=== PATIENT | female | born 1960 | race Caucasian/White ===

== ENCOUNTER 2017-01-15 06:07 | Emergency (ER) | payer MEDICAID ==
[2017-01-15] MEDS ORDERED: Sodium Chloride 0.9% 1,000 ML IV ONE (06:18)
[2017-01-15 06:20] VITALS: BP 149/89
[2017-01-15 07:18] LABS: CHLORIDE,CL 104 mmol/L (101-111); SODIUM,NA 135 mmol/L (135-145)
--- NOTE | 2017-01-15 07:26 | EDM.PDOC ---
{null, ED HPI GENERAL MEDICAL PROBLEM - General Source of Information: Reports: Patient History Limitations: Reports: No Limitations - History of Present Illness Quality: Reports: Ache Severity: Mild Associated Symptoms: Reports: Headaches Headache Pain Score (Numeric/FACES): 6 <Sunitha Vale - Last Filed: 01/15/17 07:21> <SánchezJustin Raphael - Last Filed: 01/15/17 08:01> - General Chief Complaint: Neuro Symptoms/Deficits Stated Complaint: IN BY AMBULANCE Time Seen by Provider: 01/15/17 06:15 - History of Present Illness INITIAL COMMENTS - FREE TEXT/NARRATIVE: ED via [facility] with hx "seizure". Patient reported getting morning routine bent over feeding cat and woke up on the floor shaking. Notes being tired recently with job for past month. Hx one seizure prior approximately one year ago. On no medications for seizure disorder. pain to back of her head. (Sunitha Vale) - Related Data Allergies Allergy/AdvReac Type Severity Reaction Status Date / Time diphenhydramine Allergy Rash Verified 01/15/17 06:20 [From Benadryl] loperamide HCl Allergy Rash Verified 01/15/17 06:20 [From Imodium A-D] Home Meds: Home Meds Metoprolol Succinate [Toprol XL] 100 mg PO DAILY 01/26/15 [History] Multivitamin [One Daily Multivitamin] 1 tab PO DAILY 01/26/15 [History] amLODIPine [Norvasc] 5 mg PO DAILY 01/26/15 [History] traZODone 100 mg PO BEDTIME PRN 01/26/15 [History] Past Medical History Cardiovascular History: Reports: Hypertension Respiratory History: Reports: None Gastrointestinal History: Reports: Cholelithiasis, Gastritis, GERD, Pancreatitis Other Gastrointestinal History: pancreatis split open and rerouted to stomach Genitourinary History: Reports: None 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, Musculoskeletal History: Reports: None, Osteoarthritis Neurological History: Reports: None, Concussion, Seizure Psychiatric History: Reports: Addiction, Anxiety, Depression, Panic Attack Endocrine/Metabolic History: Reports: Diabetes, Type I Hematologic History: Reports: None Immunologic History: Reports: None Oncologic (Cancer) History: Reports: None, Cervix Dermatologic History: Reports: None - Infectious Disease History Infectious Disease History: Reports: Chicken Pox, Measles, Mumps - Past Surgical History Head Surgeries/Procedures: Reports: None HEENT Surgical History: Reports: Tonsillectomy GI Surgical History: Reports: Cholecystectomy, Other (See Below) Other GI Surgeries/Procedures: Has esphogeal edema. Female Surgical History: Reports: Hysterectomy <Sunitha Vale - Last Filed: 01/15/17 07:21> Social & Family History - Family History Family Medical History: Noncontributory - Tobacco Use Smoking Status *Q: Current Every Day Smoker Years of Tobacco use: 44 Packs/Tins Daily: 1 Used Tobacco, but Quit: No Second Hand Smoke Exposure: No - Caffeine Use Caffeine Use: Reports: Coffee - Alcohol Use Days Per Week of Alcohol Use: 3 Number of Drinks Per Day: 2 Total Drinks Per Week: 6 - Recreational Drug Use Recreational Drug Use: Yes Drug Use in Last 12 Months: Yes Recreational Drug Type: Reports: Marijuana/Hashish Other Recreational Drug Type: smoked some weed Thursday Recreational Drug Use Frequency: Weekly - Living Situation & Occupation Living situation: Reports: with Family Occupation: Unemployed <Sunitha Vale - Last Filed: 01/15/17 07:21> ED ROS GENERAL - Review of Systems Review Of Systems: See Below Constitutional: Reports: Malaise, Weakness HEENT: Reports: No Symptoms Respiratory: Reports: No Symptoms Cardiovascular: Reports: No Symptoms GI/Abdominal: Reports: No Symptoms Musculoskeletal: Reports: No Symptoms Skin: Reports: No Symptoms Neurological: Reports: Headache, Seizure (self report) <Sunitha Vale - Last Filed: 01/15/17 07:21> - Physical Exam Exam: See Below Exam Limited By: No Limitations General Appearance: Alert, Anxious, Mild Distress Eye Exam: Bilateral Eye: EOMI, PERRL Ears: Normal External Exam, Normal TMs Nose: Normal Inspection, Normal Mucosa Throat/Mouth: Normal Inspection, Normal Lips Head Exam: Atraumatic, Normocephalic Neck: Normal Inspection, Supple, Non-Tender Respiratory/Chest: No Respiratory Distress, Lungs Clear Cardiovascular: Normal Peripheral Pulses, Regular Rate, Rhythm GI/Abdominal: Normal Bowel Sounds, Soft Neuro Exam (Abbreviated): Alert, Oriented, Normal Cognition, Normal Reflexes, No Motor/Sensory Deficits Back Exam: Normal Inspection, Full Range of Motion Extremities: Normal Inspection, Normal Range of Motion, Non-Tender Psychiatric: Other (dramatic) Skin Exam: Warm, Dry, Intact, Normal Color <Sunitha Vale - Last Filed: 01/15/17 07:21> Departure <Sunitha Vale - Last Filed: 01/15/17 07:21> - Departure Time of Disposition: 07:59 Condition: fair <SánchezJustin - Last Filed: 01/15/17 08:01> - Departure Disposition: Home, Self-Care 01 Clinical Impression: ETOH abuse Syncope Qualifiers: Syncope type: vasovagal syncope Qualified Code(s): R55 - Syncope and collapse - Discharge Information Forms: ED Department Discharge Care Plan Goals: The patient was advised of the examination, lab, EKG and CT results during the visit. The patient was encouraged to avoid alcohol use. The patient was given Tylenol for her headache. If the patient has any additional symptoms or concerns , the patient should follow-up with her primary care facility or return to the emergency department. }
[2017-01-15] MEDS ORDERED: Acetaminophen 325 MG Tab PO ONE (07:32)
--- NOTE | 2017-01-17 12:17 | EKG ---
{null, 01/15/2017 - FRITZ POSADAS - A 12-lead EKG shows normal sinus rhythm with right bundle-branch block signs. Nonspecific ST-T wave changes noted mainly in V4 and V5. No significant ST elevation or ST depression noted on this 12-lead EKG. [facility] /[id number] }
== END 2017-01-15 08:23 | disposition home or self-care (01) ==
LOC: DL.ED 06:07
DX: R55 Syncope and collapse (principal); F10.10 Alcohol abuse, uncomplicated; I10 Essential (primary) hypertension; K21.9 Gastro-esophageal reflux disease without esophagitis; M19.90 Unspecified osteoarthritis, unspecified site; F41.9 Anxiety disorder, unspecified; F32.9 Major depressive disorder, single episode, unspecified; E10.9 Type 1 diabetes mellitus without complications; F17.210 Nicotine dependence, cigarettes, uncomplicated; Z98.890 Other specified postprocedural states; Z90.710 Acquired absence of both cervix and uterus; Z90.49 Acquired absence of other specified parts of digestive tract; Z88.8 Allergy status to other drugs, medicaments and biological substances; Z79.899 Other long term (current) drug therapy
CPT/HCPCS: 36415; 70450; 80053; 80305; 81001; 82150; 82553; 83690; 83735; 84484; 85025; 85610; 93005; 96360; 99285; A9270; G0480; J7030

== ENCOUNTER 2019-02-07 14:19 | Observation (INO) | payer MEDICAID ==
--- NOTE | 2019-02-07 14:31 | EDM.PDOC ---
ED HPI GENERAL MEDICAL PROBLEM - General Chief Complaint: General Stated Complaint: GIRMA NARANJO [id number] Time Seen by Provider: 02/07/19 14:30 Source of Information: Reports: Patient, Old Records, RN, RN Notes Reviewed History Limitations: Reports: No Limitations - History of Present Illness INITIAL COMMENTS - FREE TEXT/NARRATIVE: Pt presents to ER from home by POV with c/o 2 days of rapid heart rate, anxiety , nausea, vomiting, abdominal pain, and tremor. Pt admits to binge drinking alcohol x3 weeks and last drank 3 or 4 days ago. Pt has Hx of pancreatitis, and alcohol withdrawals. Pt reports extreme stress and anxiety due to financial problems. Onset: Gradual Duration: Constant Location: Reports: Abdomen, Generalized Quality: Reports: Ache Severity: Moderate Improves with: Reports: None Worsens with: Reports: None Associated Symptoms: Reports: No Other Symptoms - Related Data Allergies Allergy/AdvReac Type Severity Reaction Status Date / Time diphenhydramine Allergy Rash Verified 01/15/17 06:20 [From Benadryl] loperamide HCl Allergy Rash Verified 01/15/17 06:20 [From Imodium A-D] Home Meds: Home Meds Metoprolol Succinate [Toprol XL] 100 mg PO DAILY 01/26/15 [History] Multivitamin [One Daily Multivitamin] 1 tab PO DAILY 01/26/15 [History] amLODIPine [Norvasc] 5 mg PO DAILY 01/26/15 [History] traZODone 100 mg PO BEDTIME PRN 01/26/15 [History] Past Medical History Cardiovascular History: Reports: Hypertension Respiratory History: Reports: None Gastrointestinal History: Reports: Cholelithiasis, Gastritis, GERD, Pancreatitis Other Gastrointestinal History: pancreatis split open and rerouted to stomach Genitourinary History: Reports: None 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, Musculoskeletal History: Reports: None, Osteoarthritis Neurological History: Reports: None, Concussion, Seizure Psychiatric History: Reports: Addiction, Anxiety, Depression, Panic Attack Endocrine/Metabolic History: Reports: Diabetes, Type I Hematologic History: Reports: None Immunologic History: Reports: None Oncologic (Cancer) History: Reports: None, Cervix Dermatologic History: Reports: None - Infectious Disease History Infectious Disease History: Reports: Chicken Pox, Measles, Mumps - Past Surgical History Head Surgeries/Procedures: Reports: None HEENT Surgical History: Reports: Tonsillectomy GI Surgical History: Reports: Cholecystectomy, Other (See Below) Other GI Surgeries/Procedures: Has esphogeal edema. Female Surgical History: Reports: Hysterectomy Social & Family History - Family History Family Medical History: Noncontributory - Caffeine Use Caffeine Use: Reports: Coffee - Alcohol Use Alcohol Use History: Yes Alcohol Use Frequency: Binges - Living Situation & Occupation Living situation: Reports: with Family Occupation: Unemployed ED ROS GENERAL - Review of Systems Review Of Systems: ROS reveals no pertinent complaints other than HPI. ED EXAM, GENERAL - Physical Exam Exam: See Below Exam Limited By: No Limitations General Appearance: Alert, Anxious, Thin, Other (Chronically ill appearing) Eye Exam: Bilateral Eye: EOMI, Nystagmus (Lateral gaze), PERRL Ears: Normal External Exam, Hearing Grossly Normal Nose: Normal Inspection, Normal Mucosa, No Blood Throat/Mouth: Normal Lips, Normal Teeth, Normal Gums, Normal Oropharynx, Normal Voice, No Airway Compromise, Other (Dry oral membranes) Head: Atraumatic, Normocephalic Neck: Normal Inspection, Supple, Non-Tender, Full Range of Motion Respiratory/Chest: No Respiratory Distress, Lungs Clear, Normal Breath Sounds, No Accessory Muscle Use, Chest Non-Tender Cardiovascular: Regular Rate, Rhythm, No Edema, Tachycardia GI/Abdominal: Normal Bowel Sounds, Soft, No Distention, No Abnormal Bruit, Tender (Generalized upper abdominal tenderness). No: Guarding, Rigid, Rebound (Female) Exam: Deferred Rectal (Female) Exam: Deferred Back Exam: Normal Inspection. No: CVA Tenderness (L), CVA Tenderness (R) Extremities: Normal Inspection, Normal Range of Motion, Non-Tender, Normal Capillary Refill, No Pedal Edema Neurological: Alert, Oriented, Normal Cognition, No Motor/Sensory Deficits, Other (Fine tremor of B/L hands) Psychiatric: Anxious, Depressed Mood, Flat Affect, Tearful Skin Exam: Warm, Dry, Intact, Normal Color, No Rash EKG INTERPRETATION EKG Date: 02/07/19 Time: 14:53 Rhythm: Other (Sinus Tach.) Rate (Beats/Min): 116 [place]: Normal P-Wave: Present (Biatrial abnormalities) QRS: RBBB ST-T: Normal QT: Normal Comparison: NA - No Prior EKG EKG Interpretation Comments: No acute ischemic changes. Course - Vital Signs Last Recorded V/S: Last Vital Signs Temp 98.2 F 02/07/19 14:27 Pulse 128 H 02/07/19 14:27 Resp 14 02/07/19 14:27 BP 135/98 H 02/07/19 14:27 Pulse Ox 98 02/07/19 14:27 - Orders/Labs/Meds Orders: Active Orders 24 hr Category Date Time Status EKG 12 Lead [EKG Documentation Completion] [RC] STAT Care 02/07/19 14:38 Active Peripheral IV Care [RC] . DIRECTED Care 02/07/19 14:39 Active CULTURE URINE [RM] Stat Lab 02/07/19 16:54 Received Sodium Chloride 0.9% [Saline Flush] Med 02/07/19 14:39 Active 10 ml FLUSH ASDIRECTED PRN Peripheral IV Insertion Adult [OM.PC] Stat Oth 02/07/19 14:38 Ordered Medication Orders Sodium Chloride (Saline Flush) 10 ml FLUSH ASDIRECTED PRN PRN Reason: Keep Vein Open Last Admin: 02/07/19 15:00 Dose: 10 ml Labs: Laboratory Tests 02/07/19 02/07/19 02/07/19 Range/Units 14:47 14:47 14:47 WBC 11.3 H (5.0-10.0) 10^3/uL RBC 4.90 (4.2-5.4) 10^6/uL Hgb 16.2 H (12.0-16.0) g/dL Hct 47.1 H (37.0-47.0) % MCV 96.1 (80-100) fL MCH 33.1 (27.0-34.0) pg MCHC 34.4 (33.0-35.0) g/dL Plt Count 155 (150-450) 10^3/uL Neut % (Auto) 84.1 H (42.2-75.2) % Lymph % (Auto) 9.1 L (20.5-50.1) % [place] % (Auto) 6.7 (2-8) % Eos % (Auto) 0.0 L (1.0-3.0) % Baso % (Auto) 0.1 (0.0-1.0) % PT 10.0 (9.0-12.0) SEC INR 1.0 (0.9-1.2) APTT 22.8 (22.0-34.0) SEC Sodium 129 L (135-145) mmol/L Potassium 3.4 L (3.6-5.0) mmol/L Chloride 85 L D (101-111) mmol/L Carbon Dioxide 23.0 (21.0-31.0) mmol/L Anion Gap 24.4 BUN 35 H (7-18) mg/dL Creatinine 1.4 H (0.6-1.3) mg/dL Est Cr Clr Drug Dosing 33.75 mL/min Estimated GFR (MDRD) 39 BUN/Creatinine Ratio 25.00 Glucose 206 H (74-105) mg/dL Calcium 11.5 H D (8.4-10.2) mg/dl Magnesium 1.5 L (1.8-2.5) mg/dL Total Bilirubin 1.6 H (0.2-1.0) mg/dL AST 49 H (10-42) IU/L ALT 62 H (10-60) IU/L Alkaline Phosphatase 109 (42-121) IU/L Total Protein 7.8 (6.7-8.2) g/dl Albumin 4.8 (3.2-5.5) g/dl Globulin 3.0 Albumin/Globulin Ratio 1.60 Amylase 27 L (28-100) U/L Lipase 24 (22-51) U/L TSH, Ultra Sensitive (0.45-5.33) uIu/mL Urine Color (YELLOW) Urine Appearance (CLEAR) Urine pH (5.0-9.0) Ur Specific [place] (1.005-1.030) Urine Protein (NEGATIVE) Urine Glucose (UA) (NEGATIVE) Urine Ketones (NEGATIVE) Urine Occult Blood (NEGATIVE) Urine Nitrite (NEGATIVE) Urine Bilirubin (NEGATIVE) Urine Urobilinogen (0.2-1.0) mg/dL Ur Leukocyte Esterase (NEGATIVE) Urine RBC /HPF Urine WBC (0-5/HPF) /HPF Ur Epithelial Cells (NOT SEEN) /HPF Amorphous Sediment (NOT SEEN) /HPF Urine Bacteria (0-FEW/HPF) /HPF Hyaline Casts (NOT SEEN) /LPF Urine Mucus (NOT SEEN) /LPF Urine Opiates Screen (NEGATIVE) Ur Oxycodone Screen (NEGATIVE) Urine Methadone Screen (NEGATIVE) Ur Barbiturates Screen (NEGATIVE) U Tricyclic Antidepress (NEGATIVE) Ur Phencyclidine Scrn (NEGATIVE) Ur Amphetamine Screen (NEGATIVE) U Methamphetamines Scrn (NEGATIVE) Urine MDMA Screen (NEGATIVE) U Benzodiazepines Scrn (NEGATIVE) Urine Cocaine Screen (NEGATIVE) U Marijuana (THC) Screen (NEGATIVE) Ethyl Alcohol < 5 mg/dL 02/07/19 02/07/19 02/07/19 Range/Units 14:47 16:54 16:54 WBC (5.0-10.0) 10^3/uL RBC (4.2-5.4) 10^6/uL Hgb (12.0-16.0) g/dL Hct (37.0-47.0) % MCV (80-100) fL MCH (27.0-34.0) pg MCHC (33.0-35.0) g/dL Plt Count (150-450) 10^3/uL Neut % (Auto) (42.2-75.2) % Lymph % (Auto) (20.5-50.1) % [place] % (Auto) (2-8) % Eos % (Auto) (1.0-3.0) % Baso % (Auto) (0.0-1.0) % PT (9.0-12.0) SEC INR (0.9-1.2) APTT (22.0-34.0) SEC Sodium (135-145) mmol/L Potassium (3.6-5.0) mmol/L Chloride (101-111) mmol/L Carbon Dioxide (21.0-31.0) mmol/L Anion Gap BUN (7-18) mg/dL Creatinine (0.6-1.3) mg/dL Est Cr Clr Drug Dosing mL/min Estimated GFR (MDRD) BUN/Creatinine Ratio Glucose (74-105) mg/dL Calcium (8.4-10.2) mg/dl Magnesium (1.8-2.5) mg/dL Total Bilirubin (0.2-1.0) mg/dL AST (10-42) IU/L ALT (10-60) IU/L Alkaline Phosphatase (42-121) IU/L Total Protein (6.7-8.2) g/dl Albumin (3.2-5.5) g/dl Globulin Albumin/Globulin Ratio Amylase (28-100) U/L Lipase (22-51) U/L TSH, Ultra Sensitive 1.33 (0.45-5.33) uIu/mL Urine Color [place] (YELLOW) Urine Appearance Cloudy (CLEAR) Urine pH 5.5 (5.0-9.0) Ur Specific [place] 1.025 (1.005-1.030) Urine Protein >=300 H (NEGATIVE) Urine Glucose (UA) Negative (NEGATIVE) Urine Ketones 40 H (NEGATIVE) Urine Occult Blood Negative (NEGATIVE) Urine Nitrite Negative (NEGATIVE) Urine Bilirubin Large H (NEGATIVE) Urine Urobilinogen 0.2 (0.2-1.0) mg/dL Ur Leukocyte Esterase Trace H (NEGATIVE) Urine RBC 5-10 H /HPF Urine WBC 5-10 H (0-5/HPF) /HPF Ur Epithelial Cells Many H (NOT SEEN) /HPF Amorphous Sediment Few (NOT SEEN) /HPF Urine Bacteria Moderate H (0-FEW/HPF) /HPF Hyaline Casts Few H (NOT SEEN) /LPF Urine Mucus Moderate H (NOT SEEN) /LPF Urine Opiates Screen Positive H (NEGATIVE) Ur Oxycodone Screen Negative (NEGATIVE) Urine Methadone Screen Negative (NEGATIVE) Ur Barbiturates Screen Negative (NEGATIVE) U Tricyclic Antidepress Negative (NEGATIVE) Ur Phencyclidine Scrn Negative (NEGATIVE) Ur Amphetamine Screen Negative (NEGATIVE) U Methamphetamines Scrn Negative (NEGATIVE) Urine MDMA Screen Negative (NEGATIVE) U Benzodiazepines Scrn Positive H (NEGATIVE) Urine Cocaine Screen Negative (NEGATIVE) U Marijuana (THC) Screen Positive H (NEGATIVE) Ethyl Alcohol mg/dL Meds: Medications Generic Name Dose Route Start Last Admin Trade Name Freq PRN Reason Stop Dose Admin Sodium Chloride 10 ml 02/07/19 14:39 02/07/19 15:00 Saline Flush FLUSH 10 ml ASDIRECTED PRN Administration Keep Vein Open Discontinued Medications Generic Name Dose Route Start Last Admin Trade Name Freq PRN Reason Stop Dose Admin Hydromorphone HCl 0.5 mg 02/07/19 15:36 02/07/19 15:40 Dilaudid IVPUSH 02/07/19 15:37 0.5 mg ONETIME ONE Administration Multivitamins/Minerals 10 ml/ 1,011.2 mls @ 999 mls/hr 02/07/19 14:40 15:00 Thiamine HCl 100 mg/ Folic IV 02/07/19 15:40 999 mls/hr Acid 1 mg/ Lactated Ringer's .BOLUS ONE Administration Magnesium Sulfate/Dextrose 2 200 mls @ 100 mls/hr 02/07/19 15:19 02/07/19 15: 29 gm/ Premix IV 02/07/19 17:18 100 mls/hr ONETIME ONE Administration Sodium Chloride 1,000 mls @ 999 mls/hr 02/07/19 16:19 02/07/19 17:00 Normal Saline IV 02/07/19 17:19 999 mls/hr .BOLUS ONE Administration Lorazepam 1 mg 02/07/19 14:39 02/07/19 15:00 Ativan IVPUSH 02/07/19 14:40 1 mg ONETIME ONE Administration Ondansetron HCl 4 mg 02/07/19 14:39 02/07/19 15:00 Zofran IV 02/07/19 14:40 4 mg ONETIME ONE Administration Pantoprazole Sodium 80 mg 02/07/19 15:19 02/07/19 15:29 Protonix Iv IVPUSH 02/07/19 15:20 80 mg .BOLUS ONE Administration - Radiology Interpretation Free Text/Narrative:: Pt presents to the ER from home by POV with c/o abdominal pain, N/V, dry mouth, insomnia, and shaking hands. Pt states that she was binge drinking alcohol x3 weeks due to financial stress. She states that she last drank alcohol about 4 days ago. Departure - Departure Time of Disposition: 17:30 (admitted to Dr. [place]) Disposition: Refer to Observation Condition: Fair Clinical Impression: Dehydration, Hyponatremia, Alcohol abuse Alcohol withdrawal Qualifiers: Complication of substance-induced condition: with unspecified complication Qualified Code(s): F10.239 - Alcohol dependence with withdrawal, unspecified Nausea & vomiting Qualifiers: Vomiting type: unspecified Vomiting Intractability: non-intractable Qualified Code(s): R11.2 - Nausea with vomiting, unspecified - Discharge Information *PRESCRIPTION DRUG MONITORING PROGRAM REVIEWED*: No *COPY OF PRESCRIPTION DRUG MONITORING REPORT IN PATIENT ALINA: No Forms: ED Department Discharge - My Orders Last 24 Hours: My Active Orders 02/07/19 14:38 EKG 12 Lead [EKG Documentation Completion] [RC] STAT Peripheral IV Insertion Adult [OM.PC] Stat 02/07/19 14:39 Peripheral IV Care [RC] . DIRECTED Sodium Chloride 0.9% [Saline Flush] 10 ml FLUSH ASDIRECTED PRN 02/07/19 16:54 CULTURE URINE [RM] Stat - Assessment/Plan Last 24 Hours: My Active Orders 02/07/19 14:38 EKG 12 Lead [EKG Documentation Completion] [RC] STAT Peripheral IV Insertion Adult [OM.PC] Stat 02/07/19 14:39 Peripheral IV Care [RC] . DIRECTED Sodium Chloride 0.9% [Saline Flush] 10 ml FLUSH ASDIRECTED PRN 02/07/19 16:54 CULTURE URINE [RM] Stat
[2019-02-07] MEDS ORDERED: Ondansetron 4 MG/2 ML SDV IV ONE (14:39)
[2019-02-07] MEDS ORDERED: LORazepam 2 MG/ML Syringe IVPUSH ONE (14:39)
[2019-02-07] MEDS ORDERED: MVI, Adult with Vitamin K 10 ML, Thiamine 100 MG, Folic Acid 1 MG in Lactated Ringers 1... IV ONE ×4 (14:40)
[2019-02-07] MEDS: Sodium Chloride 0.9% 10 ML Syringe FLUSH PRN ×2 (15:00→20:04)
[2019-02-07 15:14] LABS: ANION GAP 24.4; CHLORIDE,CL 85 mmol/L (101-111); SODIUM,NA 129 mmol/L (135-145)
[2019-02-07] MEDS ORDERED: Magnesium Sulfate/D5W 2 GM in Premix Bag 1 BAG IV ONE (15:19)
[2019-02-07] MEDS ORDERED: Pantoprazole 40 MG Vial IVPUSH ONE (15:19)
[2019-02-07] MEDS ORDERED: HYDROmorphone 1 MG/ML Syringe IVPUSH ONE (15:36)
[2019-02-07] MEDS ORDERED: Sodium Chloride 0.9% 1,000 ML IV ONE (16:19)
[2019-02-07] MEDS ORDERED: Potassium Chloride 10 MEQ Tab.ER PO ONE (19:15)
[2019-02-07] MEDS ORDERED: LORazepam 1 MG Tab PO PRN (19:31)
[2019-02-07] MEDS ORDERED: Sodium Chloride 0.9% 10 ML Syringe FLUSH PRN ×2 (19:31)
[2019-02-07] MEDS ORDERED: LORazepam 2 MG/ML Syringe IVPUSH PRN (19:31)
[2019-02-07] MEDS ORDERED: Acetaminophen 325 MG Tab PO PRN (19:31)
--- NOTE | 2019-02-07 19:43 | PCM.HP ---
H&P History of Present Illness - General Date of Service: 02/07/19 Admit Problem/Dx: Admission Diagnosis/Problem Admission Diagnosis/Problem Alcohol withdrawal syndrome Source of Information: Patient History Limitations: Reports: No Limitations - History of Present Illness Initial Comments - Free Text/Narative: 58-year-old female with past medical history of hypertension, alcohol abuse disorder, substance abuse disorder, pancreatitis, anxiety disorder, depression, who presents with features of alcohol withdrawal [nausea, vomiting, insomnia, tremulousness, abdominal pain] of 2 days duration. Patient reports going on a 3 week binge of alcohol and stopping suddenly 3 days ago. She cannot estimate the exact amount of alcohol she takes daily but reports that it's a lot. She noted features listed above including nausea, vomiting, insomnia, tremulousness, abdominal pain started on Thursday morning. She states symptoms have been severe, estimating that she had vomited more than 25 times. She decided to come to the emergency room today because of the insomnia. Abdominal pain is epigastric and is related to the frequent vomiting episodes. Vomitus was described as consisting of recently ingested feeds and then became clear. In the ED, she was found to have features of dehydration, mild leukocytosis, elevated hematocrit [47.1], hyponatremia [sodium of 129], hypokalemia [ potassium of 3.4], mild acute kidney injury [creatinine of 1.4], hypomagnesemia magnesium of [1.5], hypercalcemia, bacteriuria, and urine drug screen positive for opiates, benzodiazepines and cannabinoids. Review of systems: She has no urinary symptoms, no fever, no cough, no melena, no hematochezia Abdomen Pain Score (Numeric/FACES): 5 - Related Data Allergies/Adverse Reactions: Allergies Allergy/AdvReac Type Severity Reaction Status Date / Time diphenhydramine Allergy Rash Verified 02/07/19 17:47 [From Benadryl] Home Medications: Home Meds Metoprolol Succinate [Toprol XL] 100 mg PO DAILY 01/26/15 [History] Multivitamin [One Daily Multivitamin] 1 tab PO DAILY 01/26/15 [History] amLODIPine [Norvasc] 10 mg PO DAILY 01/26/15 [History] traZODone 100 mg PO BEDTIME PRN 01/26/15 [History] Past Medical History Cardiovascular History: Reports: Hypertension Respiratory History: Reports: None Gastrointestinal History: Reports: Cholelithiasis, Gastritis, GERD, Pancreatitis Other Gastrointestinal History: pancreatis split open and rerouted to stomach Genitourinary History: Reports: None NO BAKE MOLDER History: Reports: Musculoskeletal History: Reports: Osteoarthritis Neurological History: Reports: Concussion, Seizure Psychiatric History: Reports: Addiction, Anxiety, Depression, Panic Attack Endocrine/Metabolic History: Reports: Diabetes, Type I Hematologic History: Reports: None Immunologic History: Reports: None Oncologic (Cancer) History: Reports: Cervix Dermatologic History: Reports: None - Infectious Disease History Infectious Disease History: Reports: Chicken Pox, Measles, Mumps - Past Surgical History Head Surgeries/Procedures: Reports: None HEENT Surgical History: Reports: Tonsillectomy GI Surgical History: Reports: Cholecystectomy, Other (See Below) Other GI Surgeries/Procedures: Has esphogeal edema. Female Surgical History: Reports: Hysterectomy Social & Family History - Family History Family Medical History: Noncontributory - Tobacco Use Smoking Status *Q: Current Every Day Smoker Years of Tobacco use: 46 Packs/Tins Daily: 0.5 - Caffeine Use Caffeine Use: Reports: Coffee - Alcohol Use Days Per Week of Alcohol Use: 7 Number of Drinks Per Day: 5 Total Drinks Per Week: 35 Date of Last Drink: 01/31/19 - Recreational Drug Use Recreational Drug Use: Yes Drug Use in Last 12 Months: Yes Recreational Drug Type: Reports: Marijuana/Hashish Recreational Drug Use Frequency: Socially - Living Situation & Occupation Living situation: Reports: with Family Occupation: Unemployed H&P Review of Systems - Review of Systems: Review Of Systems: ROS reveals no pertinent complaints other than HPI. Exam - Exam Exam: See Below - Vital Signs Vital Signs: Last Vital Signs Temp 37.0 C 02/07/19 19:27 Pulse 81 02/07/19 19:27 Resp 18 02/07/19 19:27 BP 118/90 02/07/19 19:27 Pulse Ox 97 02/07/19 19:27 Weight: 49.714 kg - Exam General: Alert, Oriented HEENT: Conjunctiva Clear Neck: Supple, Trachea Midline Lungs: Clear to Auscultation, Normal Respiratory Effort Cardiovascular: Regular Rate, Regular Rhythm GI/Abdominal Exam: Normal Bowel Sounds, Soft (Diffuse abdominal tenderness), Tender. No: Distended, Guarding, Rigid Extremities: Normal Inspection, Normal Range of Motion. No: Pedal Edema - Patient Data Lab Results Last 24 hrs: Laboratory Results - last 24 hr 02/07/19 02/07/19 02/07/19 Range/Units 14:47 14:47 14:47 WBC 11.3 H (5.0-10.0) 10^3/uL RBC 4.90 (4.2-5.4) 10^6/uL Hgb 16.2 H (12.0-16.0) g/dL Hct 47.1 H (37.0-47.0) % MCV 96.1 (80-100) fL MCH 33.1 (27.0-34.0) pg MCHC 34.4 (33.0-35.0) g/dL Plt Count 155 (150-450) 10^3/uL Neut % (Auto) 84.1 H (42.2-75.2) % Lymph % (Auto) 9.1 L (20.5-50.1) % [place] % (Auto) 6.7 (2-8) % Eos % (Auto) 0.0 L (1.0-3.0) % Baso % (Auto) 0.1 (0.0-1.0) % PT 10.0 (9.0-12.0) SEC INR 1.0 (0.9-1.2) APTT 22.8 (22.0-34.0) SEC Sodium 129 L (135-145) mmol/L Potassium 3.4 L (3.6-5.0) mmol/L Chloride 85 L D (101-111) mmol/L Carbon Dioxide 23.0 (21.0-31.0) mmol/L Anion Gap 24.4 BUN 35 H (7-18) mg/dL Creatinine 1.4 H (0.6-1.3) mg/dL Est Cr Clr Drug Dosing 33.75 mL/min Estimated GFR (MDRD) 39 BUN/Creatinine Ratio 25.00 Glucose 206 H (74-105) mg/dL Calcium 11.5 H D (8.4-10.2) mg/dl Magnesium 1.5 L (1.8-2.5) mg/dL Total Bilirubin 1.6 H (0.2-1.0) mg/dL AST 49 H (10-42) IU/L ALT 62 H (10-60) IU/L Alkaline Phosphatase 109 (42-121) IU/L Total Protein 7.8 (6.7-8.2) g/dl Albumin 4.8 (3.2-5.5) g/dl Globulin 3.0 Albumin/Globulin Ratio 1.60 Amylase 27 L (28-100) U/L Lipase 24 (22-51) U/L TSH, Ultra Sensitive (0.45-5.33) uIu/mL Urine Color (YELLOW) Urine Appearance (CLEAR) Urine pH (5.0-9.0) Ur Specific [place] (1.005-1.030) Urine Protein (NEGATIVE) Urine Glucose (UA) (NEGATIVE) Urine Ketones (NEGATIVE) Urine Occult Blood (NEGATIVE) Urine Nitrite (NEGATIVE) Urine Bilirubin (NEGATIVE) Urine Urobilinogen (0.2-1.0) mg/dL Ur Leukocyte Esterase (NEGATIVE) Urine RBC /HPF Urine WBC (0-5/HPF) /HPF Ur Epithelial Cells (NOT SEEN) /HPF Amorphous Sediment (NOT SEEN) /HPF Urine Bacteria (0-FEW/HPF) /HPF Hyaline Casts (NOT SEEN) /LPF Urine Mucus (NOT SEEN) /LPF Urine Opiates Screen (NEGATIVE) Ur Oxycodone Screen (NEGATIVE) Urine Methadone Screen (NEGATIVE) Ur Barbiturates Screen (NEGATIVE) U Tricyclic Antidepress (NEGATIVE) Ur Phencyclidine Scrn (NEGATIVE) Ur Amphetamine Screen (NEGATIVE) U Methamphetamines Scrn (NEGATIVE) Urine MDMA Screen (NEGATIVE) U Benzodiazepines Scrn (NEGATIVE) Urine Cocaine Screen (NEGATIVE) U Marijuana (THC) Screen (NEGATIVE) Ethyl Alcohol < 5 mg/dL 02/07/19 02/07/19 02/07/19 Range/Units 14:47 16:54 16:54 WBC (5.0-10.0) 10^3/uL RBC (4.2-5.4) 10^6/uL Hgb (12.0-16.0) g/dL Hct (37.0-47.0) % MCV (80-100) fL MCH (27.0-34.0) pg MCHC (33.0-35.0) g/dL Plt Count (150-450) 10^3/uL Neut % (Auto) (42.2-75.2) % Lymph % (Auto) (20.5-50.1) % [place] % (Auto) (2-8) % Eos % (Auto) (1.0-3.0) % Baso % (Auto) (0.0-1.0) % PT (9.0-12.0) SEC INR (0.9-1.2) APTT (22.0-34.0) SEC Sodium (135-145) mmol/L Potassium (3.6-5.0) mmol/L Chloride (101-111) mmol/L Carbon Dioxide (21.0-31.0) mmol/L Anion Gap BUN (7-18) mg/dL Creatinine (0.6-1.3) mg/dL Est Cr Clr Drug Dosing mL/min Estimated GFR (MDRD) BUN/Creatinine Ratio Glucose (74-105) mg/dL Calcium (8.4-10.2) mg/dl Magnesium (1.8-2.5) mg/dL Total Bilirubin (0.2-1.0) mg/dL AST (10-42) IU/L ALT (10-60) IU/L Alkaline Phosphatase (42-121) IU/L Total Protein (6.7-8.2) g/dl Albumin (3.2-5.5) g/dl Globulin Albumin/Globulin Ratio Amylase (28-100) U/L Lipase (22-51) U/L TSH, Ultra Sensitive 1.33 (0.45-5.33) uIu/mL Urine Color Xin (YELLOW) Urine Appearance Cloudy (CLEAR) Urine pH 5.5 (5.0-9.0) Ur Specific [place] 1.025 (1.005-1.030) Urine Protein >=300 H (NEGATIVE) Urine Glucose (UA) Negative (NEGATIVE) Urine Ketones 40 H (NEGATIVE) Urine Occult Blood Negative (NEGATIVE) Urine Nitrite Negative (NEGATIVE) Urine Bilirubin Large H (NEGATIVE) Urine Urobilinogen 0.2 (0.2-1.0) mg/dL Ur Leukocyte Esterase Trace H (NEGATIVE) Urine RBC 5-10 H /HPF Urine WBC 5-10 H (0-5/HPF) /HPF Ur Epithelial Cells Many H (NOT SEEN) /HPF Amorphous Sediment Few (NOT SEEN) /HPF Urine Bacteria Moderate H (0-FEW/HPF) /HPF Hyaline Casts Few H (NOT SEEN) /LPF Urine Mucus Moderate H (NOT SEEN) /LPF Urine Opiates Screen Positive H (NEGATIVE) Ur Oxycodone Screen Negative (NEGATIVE) Urine Methadone Screen Negative (NEGATIVE) Ur Barbiturates Screen Negative (NEGATIVE) U Tricyclic Antidepress Negative (NEGATIVE) Ur Phencyclidine Scrn Negative (NEGATIVE) Ur Amphetamine Screen Negative (NEGATIVE) U Methamphetamines Scrn Negative (NEGATIVE) Urine MDMA Screen Negative (NEGATIVE) U Benzodiazepines Scrn Positive H (NEGATIVE) Urine Cocaine Screen Negative (NEGATIVE) U Marijuana (THC) Screen Positive H (NEGATIVE) Ethyl Alcohol mg/dL Result Diagrams: 02/07/19 14:47 02/07/19 14:47 Problem List Initiated/Reviewed/Updated: Yes Orders Last 24hrs: Active Orders 24 hr Category Date Time Status Patient Status [ADT] Routine ADT 02/07/19 19:31 Ordered Ambulate [RC] ASDIRECTED Care 02/07/19 19:31 Ordered Height and Weight [RC] DAILY Care 02/07/19 19:31 Ordered Peripheral IV Care [RC] . DIRECTED Care 02/07/19 19:31 Ordered Peripheral IV Care [RC] 09,21 Care 02/07/19 14:39 Active Up With Assistance [RC] ASDIRECTED Care 02/07/19 19:31 Ordered VTE/DVT Education [RC] PER UNIT ROUTINE Care 02/07/19 19:31 Ordered Vital Signs [RC] Q4H Care 02/07/19 19:31 Ordered Regular Diet [DIET] Diet 02/07/19 Breakfast Ordered BASIC METABOLIC PANEL,BMP [CHEM] AM Lab 02/08/19 05:11 Ordered BASIC METABOLIC PANEL,BMP [CHEM] AM Lab 02/09/19 05:11 Ordered BASIC METABOLIC PANEL,BMP [CHEM] AM Lab 02/10/19 05:11 Ordered CBC W/O DIFF,HEMOGRAM [HEME] AM Lab 02/08/19 05:11 Ordered CBC W/O DIFF,HEMOGRAM [HEME] AM Lab 02/09/19 05:11 Ordered CBC W/O DIFF,HEMOGRAM [HEME] AM Lab 02/10/19 05:11 Ordered CULTURE URINE [RM] Stat Lab 02/07/19 16:54 Received MAGNESIUM [CHEM] AM Lab 02/08/19 05:11 Ordered PHOSPHORUS [CHEM] AM Lab 02/08/19 05:11 Ordered Acetaminophen [Tylenol] Med 02/07/19 19:31 Ordered 650 mg PO Q4H PRN Heparin Sodium Med 02/07/19 22:00 Ordered 5,000 units SUBCUT Q8HR LORazepam [Ativan] Med 02/07/19 19:31 Ordered See Protocol IVPUSH ASDIRECTED PRN LORazepam [Ativan] Med 02/07/19 19:31 Ordered See Protocol PO Q4H PRN Metoprolol Succinate [Toprol XL] Med 02/08/19 09:00 Ordered 100 mg PO DAILY Multivitamin [One Daily Multivitamin] Med 02/08/19 09:00 Ordered 1 tab PO DAILY Pantoprazole [ProTONIX] Med 02/07/19 19:34 Ordered 40 mg PO BIDAC Sodium Chloride 0.9% [Saline Flush] Med 02/07/19 14:39 Active 10 ml FLUSH ASDIRECTED PRN Sodium Chloride 0.9% [Saline Flush] Med 02/07/19 19:31 Ordered 10 ml FLUSH ASDIRECTED PRN Sodium Chloride 0.9% [Saline Flush] Med 02/07/19 19:31 Ordered 10 ml FLUSH ASDIRECTED PRN Sodium Chloride 0.9% with KCl 20 mEq @ 150 mL/Hr (1000 Med 02/07/19 19:45 Ordered mL) NS + KCl 20mEq/L [Normal Saline with 20 mEq KCl] 1,000 ml IV ASDIRECTED Thiamine [Vitamin B-1] Med 02/07/19 21:00 Ordered 100 mg PO BEDTIME amLODIPine [Norvasc] Med 02/08/19 09:00 Ordered 10 mg PO DAILY traMADol [Ultram] Med 02/07/19 19:31 Ordered 50 mg PO Q4H PRN traZODone Med 02/07/19 19:35 Ordered 100 mg PO BEDTIME PRN Peripheral IV Insertion Adult [OM.PC] Routine Oth 02/07/19 19:31 Ordered Peripheral IV Insertion Adult [OM.PC] Stat Oth 02/07/19 14:38 Ordered Saline Lock Insert [OM.PC] Routine Oth 02/07/19 19:31 Ordered Resuscitation Status Routine Resus Stat 02/07/19 19:31 Ordered Medication Orders Acetaminophen (Tylenol) 650 mg PO Q4H PRN PRN Reason: Pain (mild 1-3) Amlodipine Besylate (Norvasc) 10 mg PO DAILY SHWET[facility] Heparin Sodium (Porcine) (Heparin Sodium) 5,000 units SUBCUT Q8HR [facility] Potassium Chloride/Sodium Chloride (Normal Saline With 20 Meq Kcl) 1,000 mls @ 150 mls/hr IV ASDIRECTED [facility]HA Lorazepam (Ativan) 0 mg PO Q4H PRN; Protocol PRN Reason: Withdrawal Symptoms Lorazepam (Ativan) 0 mg IVPUSH ASDIRECTED PRN; Protocol PRN Reason: Withdrawal Symptoms Non-Formulary Medication (Metoprolol Succinate [Toprol Xl]) 100 mg PO DAILY SHWETHA Non-Formulary Medication (Multivitamin [One Daily Multivitamin]) 1 tab PO DAILY SHW[facility] Non-Formulary Medication (Trazodone) 100 mg PO BEDTIME PRN PRN Reason: Sleep Pantoprazole Sodium (Protonix) 40 mg PO BIDAC SHWETHA Sodium Chloride (Saline Flush) 10 ml FLUSH ASDIRECTED PRN PRN Reason: Keep Vein Open Last Admin: 02/07/19 15:00 Dose: 10 ml Sodium Chloride (Saline Flush) 10 ml FLUSH ASDIRECTED PRN PRN Reason: Keep Vein Open Sodium Chloride (Saline Flush) 10 ml FLUSH ASDIRECTED PRN PRN Reason: Keep Vein Open Thiamine HCl (Vitamin B-1) 100 mg PO BEDTIME SHWETHA Tramadol HCl (Ultram) 50 mg PO Q4H PRN PRN Reason: Pain (moderate 4-6) Assessment/Plan Comment:: Alcohol withdrawal Monitor on the [facility] protocol PRN Ativan per the [facility] protocol Oral thiamine and multivitamin supplementation Monitor electrolytes and replenish as needed Dehydration IV fluid hydration Hyponatremia [sodium of 129], mild hyponatremia Likely related to alcoholism/low caloric intake, tea and toast hyponatremia Monitor sodium levels IV fluid hydration Hypokalemia [potassium of 3.4], Likely secondary to nausea and vomiting Replenish potassium both orally and intravenously Mild acute kidney injury [creatinine of 1.4], IV fluid hydration Monitor creatinine daily Avoid nephrotoxic agents renally dose all medication. Hypomagnesemia magnesium of [1.5], Was given 2 g of magnesium and emergency room Recheck magnesium tomorrow morning Hypercalcemia, IV fluid hydration Recheck Ca2+ tomorrow morning Asymptomatic bacteriuria Urinalysis noted However patient has no fever, no urinary symptoms Monitor for now, no antibiotics indicated. DVT prophylaxis SC heparin
[2019-02-07] MEDS: Pantoprazole 40 MG Tab.CR PO SCH (20:01)
[2019-02-07] MEDS: NS + KCl 20mEq/L 1,000 ML IV SCH (20:04)
[2019-02-07] MEDS: traMADol 50 MG Tab PO PRN (20:24)
[2019-02-07] MEDS: Thiamine 100 MG Tab PO SCH (20:24)
[2019-02-07] MEDS: LORazepam 2 MG/ML Syringe IVPUSH PRN ×2 (20:36→23:23)
[2019-02-07] MEDS: Heparin Sodium 5,000 Units/ML Vial SUBCUT SCH (21:51)
[2019-02-07] MEDS: traZODone 50 MG Tab PO PRN (21:56)
[2019-02-07] MEDS ORDERED: oxyCODONE 5 MG Tab PO ONE (23:01)
[2019-02-08] MEDS: LORazepam 1 MG Tab PO PRN ×3 (02:15→15:22)
[2019-02-08] MEDS: traMADol 50 MG Tab PO PRN ×2 (02:16→09:00)
[2019-02-08] MEDS: NS + KCl 20mEq/L 1,000 ML IV SCH ×3 (03:23→18:34)
[2019-02-08] MEDS ORDERED: oxyCODONE 5 MG Tab PO ONE (03:48)
[2019-02-08] MEDS ORDERED: Ondansetron 4 MG/2 ML SDV IV PRN (03:49)
[2019-02-08] MEDS: Pantoprazole 40 MG Tab.CR PO SCH ×2 (05:31→17:20)
[2019-02-08] MEDS: Heparin Sodium 5,000 Units/ML Vial SUBCUT SCH ×4 (05:32→22:12)
[2019-02-08 06:31] LABS: ANION GAP 17.4; CHLORIDE,CL 91 mmol/L (101-111); SODIUM,NA 131 mmol/L (135-145)
[2019-02-08] MEDS ORDERED: Metoprolol Succinate 50 MG Tab.ER PO SCH (09:00)
[2019-02-08] MEDS ORDERED: Multivitamins,Therapeutic Tab PO SCH (09:00)
[2019-02-08] MEDS ORDERED: amLODIPine 5 MG Tab PO SCH (09:00)
[2019-02-08] MEDS ORDERED: Magnesium Sulfate/Water 2 GM in Premix Bag 1 BAG IV ONE (10:00)
--- NOTE | 2019-02-08 10:27 | PCM.PN ---
- General Info Date of Service: 02/08/19 Admission Dx/Problem (Free Text): Admission Diagnosis/Problem Admission Diagnosis/Problem Alcohol withdrawal syndrome Subjective Update: I saw and examined the patient at the bedside Still complains of abdominal pain, nausea, poor appetite No fever, cough, chest pain - Review of Systems General: Denies: Fever HEENT: Reports: No Symptoms Pulmonary: Reports: No Symptoms Cardiovascular: Reports: No Symptoms Gastrointestinal: Reports: Abdominal Pain, Nausea Genitourinary: Reports: No Symptoms Musculoskeletal: Reports: No Symptoms Skin: Reports: No Symptoms - Patient Data Vitals - Most Recent: Last Vital Signs Temp 37.5 C 02/08/19 07:00 Pulse 91 02/08/19 09:02 Resp 16 02/08/19 07:00 BP 142/97 H 02/08/19 09:03 Pulse Ox 96 02/08/19 07:00 Weight - Most Recent: 49.26 kg I&O - Last 24 Hours: Intake & Output 02/07/19 02/08/19 02/08/19 22:59 06:59 14:59 Intake Total 1677 1051 678 Output Total 900 2400 Balance 777 -1349 678 Lab Results Last 24 Hours: Laboratory Results - last 24 hr 02/07/19 02/07/19 02/07/19 Range/Units 14:47 14:47 14:47 WBC 11.3 H (5.0-10.0) 10^3/uL RBC 4.90 (4.2-5.4) 10^6/uL Hgb 16.2 H (12.0-16.0) g/dL Hct 47.1 H (37.0-47.0) % MCV 96.1 (80-100) fL MCH 33.1 (27.0-34.0) pg MCHC 34.4 (33.0-35.0) g/dL Plt Count 155 (150-450) 10^3/uL Neut % (Auto) 84.1 H (42.2-75.2) % Lymph % (Auto) 9.1 L (20.5-50.1) % [place] % (Auto) 6.7 (2-8) % Eos % (Auto) 0.0 L (1.0-3.0) % Baso % (Auto) 0.1 (0.0-1.0) % PT 10.0 (9.0-12.0) SEC INR 1.0 (0.9-1.2) APTT 22.8 (22.0-34.0) SEC Sodium 129 L (135-145) mmol/L Potassium 3.4 L (3.6-5.0) mmol/L Chloride 85 L D (101-111) mmol/L Carbon Dioxide 23.0 (21.0-31.0) mmol/L Anion Gap 24.4 BUN 35 H (7-18) mg/dL Creatinine 1.4 H (0.6-1.3) mg/dL Est Cr Clr Drug Dosing 33.75 mL/min Estimated GFR (MDRD) 39 BUN/Creatinine Ratio 25.00 Glucose 206 H (74-105) mg/dL Calcium 11.5 H D (8.4-10.2) mg/dl Phosphorus (2.5-4.6) mg/dL Magnesium 1.5 L (1.8-2.5) mg/dL Total Bilirubin 1.6 H (0.2-1.0) mg/dL AST 49 H (10-42) IU/L ALT 62 H (10-60) IU/L Alkaline Phosphatase 109 (42-121) IU/L Total Protein 7.8 (6.7-8.2) g/dl Albumin 4.8 (3.2-5.5) g/dl Globulin 3.0 Albumin/Globulin Ratio 1.60 Amylase 27 L (28-100) U/L Lipase 24 (22-51) U/L TSH, Ultra Sensitive (0.45-5.33) uIu/mL Urine Color (YELLOW) Urine Appearance (CLEAR) Urine pH (5.0-9.0) Ur Specific [place] (1.005-1.030) Urine Protein (NEGATIVE) Urine Glucose (UA) (NEGATIVE) Urine Ketones (NEGATIVE) Urine Occult Blood (NEGATIVE) Urine Nitrite (NEGATIVE) Urine Bilirubin (NEGATIVE) Urine Urobilinogen (0.2-1.0) mg/dL Ur Leukocyte Esterase (NEGATIVE) Urine RBC /HPF Urine WBC (0-5/HPF) /HPF Ur Epithelial Cells (NOT SEEN) /HPF Amorphous Sediment (NOT SEEN) /HPF Urine Bacteria (0-FEW/HPF) /HPF Hyaline Casts (NOT SEEN) /LPF Urine Mucus (NOT SEEN) /LPF Urine Opiates Screen (NEGATIVE) Ur Oxycodone Screen (NEGATIVE) Urine Methadone Screen (NEGATIVE) Ur Barbiturates Screen (NEGATIVE) U Tricyclic Antidepress (NEGATIVE) Ur Phencyclidine Scrn (NEGATIVE) Ur Amphetamine Screen (NEGATIVE) U Methamphetamines Scrn (NEGATIVE) Urine MDMA Screen (NEGATIVE) U Benzodiazepines Scrn (NEGATIVE) Urine Cocaine Screen (NEGATIVE) U Marijuana (THC) Screen (NEGATIVE) Ethyl Alcohol < 5 mg/dL 02/07/19 02/07/19 02/07/19 Range/Units 14:47 16:54 16:54 WBC (5.0-10.0) 10^3/uL RBC (4.2-5.4) 10^6/uL Hgb (12.0-16.0) g/dL Hct (37.0-47.0) % MCV (80-100) fL MCH (27.0-34.0) pg MCHC (33.0-35.0) g/dL Plt Count (150-450) 10^3/uL Neut % (Auto) (42.2-75.2) % Lymph % (Auto) (20.5-50.1) % [place] % (Auto) (2-8) % Eos % (Auto) (1.0-3.0) % Baso % (Auto) (0.0-1.0) % PT (9.0-12.0) SEC INR (0.9-1.2) APTT (22.0-34.0) SEC Sodium (135-145) mmol/L Potassium (3.6-5.0) mmol/L Chloride (101-111) mmol/L Carbon Dioxide (21.0-31.0) mmol/L Anion Gap BUN (7-18) mg/dL Creatinine (0.6-1.3) mg/dL Est Cr Clr Drug Dosing mL/min Estimated GFR (MDRD) BUN/Creatinine Ratio Glucose (74-105) mg/dL Calcium (8.4-10.2) mg/dl Phosphorus (2.5-4.6) mg/dL Magnesium (1.8-2.5) mg/dL Total Bilirubin (0.2-1.0) mg/dL AST (10-42) IU/L ALT (10-60) IU/L Alkaline Phosphatase (42-121) IU/L Total Protein (6.7-8.2) g/dl Albumin (3.2-5.5) g/dl Globulin Albumin/Globulin Ratio Amylase (28-100) U/L Lipase (22-51) U/L TSH, Ultra Sensitive 1.33 (0.45-5.33) uIu/mL Urine Color Xin (YELLOW) Urine Appearance Cloudy (CLEAR) Urine pH 5.5 (5.0-9.0) Ur Specific [place] 1.025 (1.005-1.030) Urine Protein >=300 H (NEGATIVE) Urine Glucose (UA) Negative (NEGATIVE) Urine Ketones 40 H (NEGATIVE) Urine Occult Blood Negative (NEGATIVE) Urine Nitrite Negative (NEGATIVE) Urine Bilirubin Large H (NEGATIVE) Urine Urobilinogen 0.2 (0.2-1.0) mg/dL Ur Leukocyte Esterase Trace H (NEGATIVE) Urine RBC 5-10 H /HPF Urine WBC 5-10 H (0-5/HPF) /HPF Ur Epithelial Cells Many H (NOT SEEN) /HPF Amorphous Sediment Few (NOT SEEN) /HPF Urine Bacteria Moderate H (0-FEW/HPF) /HPF Hyaline Casts Few H (NOT SEEN) /LPF Urine Mucus Moderate H (NOT SEEN) /LPF Urine Opiates Screen Positive H (NEGATIVE) Ur Oxycodone Screen Negative (NEGATIVE) Urine Methadone Screen Negative (NEGATIVE) Ur Barbiturates Screen Negative (NEGATIVE) U Tricyclic Antidepress Negative (NEGATIVE) Ur Phencyclidine Scrn Negative (NEGATIVE) Ur Amphetamine Screen Negative (NEGATIVE) U Methamphetamines Scrn Negative (NEGATIVE) Urine MDMA Screen Negative (NEGATIVE) U Benzodiazepines Scrn Positive H (NEGATIVE) Urine Cocaine Screen Negative (NEGATIVE) U Marijuana (THC) Screen Positive H (NEGATIVE) Ethyl Alcohol mg/dL 02/08/19 02/08/19 Range/Units 05:53 05:53 WBC 9.1 (5.0-10.0) 10^3/uL RBC 4.70 (4.2-5.4) 10^6/uL Hgb 15.3 (12.0-16.0) g/dL Hct 45.4 (37.0-47.0) % MCV 96.6 (80-100) fL MCH 32.6 (27.0-34.0) pg MCHC 33.7 (33.0-35.0) g/dL Plt Count 131 L (150-450) 10^3/uL Neut % (Auto) (42.2-75.2) % Lymph % (Auto) (20.5-50.1) % [place] % (Auto) (2-8) % Eos % (Auto) (1.0-3.0) % Baso % (Auto) (0.0-1.0) % PT (9.0-12.0) SEC INR (0.9-1.2) APTT (22.0-34.0) SEC Sodium 131 L (135-145) mmol/L Potassium 3.4 L (3.6-5.0) mmol/L Chloride 91 L (101-111) mmol/L Carbon Dioxide 26.0 (21.0-31.0) mmol/L Anion Gap 17.4 BUN 18 (7-18) mg/dL Creatinine 0.8 (0.6-1.3) mg/dL Est Cr Clr Drug Dosing 59.61 mL/min Estimated GFR (MDRD) > 60 BUN/Creatinine Ratio Glucose 196 H (74-105) mg/dL Calcium 9.5 D (8.4-10.2) mg/dl Phosphorus 2.1 L (2.5-4.6) mg/dL Magnesium 1.5 L (1.8-2.5) mg/dL Total Bilirubin (0.2-1.0) mg/dL AST (10-42) IU/L ALT (10-60) IU/L Alkaline Phosphatase (42-121) IU/L Total Protein (6.7-8.2) g/dl Albumin (3.2-5.5) g/dl Globulin Albumin/Globulin Ratio Amylase (28-100) U/L Lipase (22-51) U/L TSH, Ultra Sensitive (0.45-5.33) uIu/mL Urine Color (YELLOW) Urine Appearance (CLEAR) Urine pH (5.0-9.0) Ur Specific [place] (1.005-1.030) Urine Protein (NEGATIVE) Urine Glucose (UA) (NEGATIVE) Urine Ketones (NEGATIVE) Urine Occult Blood (NEGATIVE) Urine Nitrite (NEGATIVE) Urine Bilirubin (NEGATIVE) Urine Urobilinogen (0.2-1.0) mg/dL Ur Leukocyte Esterase (NEGATIVE) Urine RBC /HPF Urine WBC (0-5/HPF) /HPF Ur Epithelial Cells (NOT SEEN) /HPF Amorphous Sediment (NOT SEEN) /HPF Urine Bacteria (0-FEW/HPF) /HPF Hyaline Casts (NOT SEEN) /LPF Urine Mucus (NOT SEEN) /LPF Urine Opiates Screen (NEGATIVE) Ur Oxycodone Screen (NEGATIVE) Urine Methadone Screen (NEGATIVE) Ur Barbiturates Screen (NEGATIVE) U Tricyclic Antidepress (NEGATIVE) Ur Phencyclidine Scrn (NEGATIVE) Ur Amphetamine Screen (NEGATIVE) U Methamphetamines Scrn (NEGATIVE) Urine MDMA Screen (NEGATIVE) U Benzodiazepines Scrn (NEGATIVE) Urine Cocaine Screen (NEGATIVE) U Marijuana (THC) Screen (NEGATIVE) Ethyl Alcohol mg/dL Ezequiel Results Last 24 Hours: Microbiology 02/07/19 16:54 Urine Culture - Preliminary Urine, Voided NO GROWTH AFTER 1 DAY Med Orders - Current: Current Medications Acetaminophen (Tylenol) 650 mg PO Q4H PRN PRN Reason: Pain (mild 1-3) Amlodipine Besylate (Norvasc) 10 mg PO DAILY [facility] Last Admin: 02/08/19 09:03 Dose: 10 mg Heparin Sodium (Porcine) (Heparin Sodium) 5,000 units SUBCUT Q8HR [facility] Last Admin: 02/08/19 05:32 Dose: 5,000 units Potassium Chloride/Sodium Chloride (Normal Saline With 20 Meq Kcl) 1,000 mls @ 150 mls/hr IV ASDIRECTED [facility] Last Admin: 02/08/19 09:59 Dose: 150 mls/hr Magnesium Sulfate 2 gm/ Premix 50 mls @ 25 mls/hr IV ONETIME ONE Stop: 02/08/19 11:59 Last Admin: 02/08/19 10:08 Dose: 25 mls/hr Lorazepam (Ativan) 0 mg PO ASDIRECTED PRN; Protocol PRN Reason: Withdrawal Symptoms Last Admin: 02/08/19 02:15 Dose: 1 mg Lorazepam (Ativan) 0 mg IVPUSH ASDIRECTED PRN; Protocol PRN Reason: Withdrawal Symptoms Last Admin: 02/07/19 23:23 Dose: 1 mg Metoprolol Succinate (Toprol Xl) 100 mg PO DAILY [facility] Last Admin: 02/08/19 09:02 Dose: 100 mg Multivitamins (Thera) 1 each PO DAILY [facility] Last Admin: 02/08/19 08:59 Dose: 1 each Ondansetron HCl (Zofran) 4 mg IV Q4H PRN PRN Reason: Nausea/Vomiting Oxycodone HCl (Oxycodone) 5 mg PO Q4H PRN PRN Reason: Pain (moderate 4-6) Pantoprazole Sodium (Protonix) 40 mg PO BIDAC [facility] Last Admin: 02/08/19 05:31 Dose: 40 mg Sodium Chloride (Saline Flush) 10 ml FLUSH ASDIRECTED PRN PRN Reason: Keep Vein Open Sodium Phosphate (Neutra-Phos) 250 mg PO QID [facility] Thiamine HCl (Vitamin B-1) 100 mg PO BEDTIME [facility] Last Admin: 02/07/19 20:24 Dose: 100 mg Trazodone HCl (Trazodone) 100 mg PO BEDTIME PRN PRN Reason: Sleep Last Admin: 02/07/19 21:56 Dose: 100 mg Discontinued Medications Hydromorphone HCl (Dilaudid) 0.5 mg IVPUSH ONETIME ONE Stop: 02/07/19 15:37 Last Admin: 02/07/19 15:40 Dose: 0.5 mg Multivitamins/Minerals 10 ml/Thiamine HCl 100 mg/ Folic Acid 1 mg/ Lactated Ringer's 1,011.2 mls @ 999 mls/hr IV .BOLUS ONE Stop: 02/07/19 15:40 Last Admin: 02/07/19 15:00 Dose: 999 mls/hr Magnesium Sulfate/Dextrose 2 (gm/ Premix) 200 mls @ 100 mls/hr IV ONETIME ONE Stop: 02/07/19 17:18 Last Admin: 02/07/19 15:29 Dose: 100 mls/hr Sodium Chloride (Normal Saline) 1,000 mls @ 999 mls/hr IV .BOLUS ONE Stop: 02/07/19 17:19 Last Admin: 02/07/19 17:00 Dose: 999 mls/hr Lorazepam (Ativan) 1 mg IVPUSH ONETIME ONE Stop: 02/07/19 14:40 Last Admin: 02/07/19 15:00 Dose: 1 mg Lorazepam (Ativan) 0 mg PO Q4H PRN; Protocol PRN Reason: Withdrawal Symptoms Lorazepam (Ativan) 0 mg IVPUSH ASDIRECTED PRN; Protocol PRN Reason: Withdrawal Symptoms Ondansetron HCl (Zofran) 4 mg IV ONETIME ONE Stop: 02/07/19 14:40 Last Admin: 02/07/19 15:00 Dose: 4 mg Ondansetron HCl (Zofran) 4 mg IV Q6H PRN PRN Reason: Nausea/Vomiting Last Admin: 02/08/19 04:01 Dose: 4 mg Oxycodone HCl (Oxycodone) 5 mg PO ONETIME ONE Stop: 02/07/19 23:02 Last Admin: 02/07/19 23:21 Dose: 5 mg Oxycodone HCl (Oxycodone) 5 mg PO ONETIME ONE Stop: 02/08/19 03:49 Last Admin: 02/08/19 04:01 Dose: 5 mg Pantoprazole Sodium (Protonix Iv) 80 mg IVPUSH .BOLUS ONE Stop: 02/07/19 15:20 Last Admin: 02/07/19 15:29 Dose: 80 mg Potassium Chloride (Klor-Con 10) 40 meq PO ONETIME ONE Stop: 02/07/19 19:16 Last Admin: 02/07/19 20:00 Dose: 40 meq Sodium Chloride (Saline Flush) 10 ml FLUSH ASDIRECTED PRN PRN Reason: Keep Vein Open Last Admin: 02/07/19 20:04 Dose: 10 ml Tramadol HCl (Ultram) 50 mg PO Q4H PRN PRN Reason: Pain (moderate 4-6) Last Admin: 02/08/19 09:00 Dose: 50 mg - Exam General: Alert, Oriented HEENT: Pupils Equal, Pupils Reactive Neck: Supple Lungs: Clear to Auscultation Cardiovascular: Regular Rate GI/Abdominal Exam: Normal Bowel Sounds. No: Distended, Guarding, Rigid, Rebound Extremities: Normal Inspection, Normal Range of Motion - Problem List Review Problem List Initiated/Reviewed/Updated: Yes - My Orders Last 24 Hours: My Active Orders 02/07/19 19:31 Patient Status [ADT] Routine Ambulate [RC] ASDIRECTED Height and Weight [RC] 06 Peripheral IV Care [RC] . DIRECTED Up With Assistance [RC] ASDIRECTED VTE/DVT Education [RC] PER UNIT ROUTINE Vital Signs [RC] Q4H Acetaminophen [Tylenol] 650 mg PO Q4H PRN Sodium Chloride 0.9% [Saline Flush] 10 ml FLUSH ASDIRECTED PRN Peripheral IV Insertion Adult [OM.PC] Routine Saline Lock Insert [OM.PC] Routine Resuscitation Status Routine 02/07/19 19:34 Pantoprazole [ProTONIX] 40 mg PO BIDAC 02/07/19 19:45 NS + KCl 20mEq/L [Normal Saline with 20 mEq KCl] 1,000 ml IV ASDIRECTED 02/07/19 20:00 traZODone 100 mg PO BEDTIME PRN 02/07/19 20:13 LORazepam [Ativan] See Protocol IVPUSH ASDIRECTED PRN LORazepam [Ativan] See Protocol PO ASDIRECTED PRN 02/07/19 21:00 Thiamine [Vitamin B-1] 100 mg PO BEDTIME 02/07/19 22:00 Heparin Sodium 5,000 units SUBCUT Q8HR 02/08/19 09:00 Metoprolol Succinate [Toprol XL] 100 mg PO DAILY Multivitamins,Therapeutic [Thera] 1 each PO DAILY amLODIPine [Norvasc] 10 mg PO DAILY 02/08/19 09:11 Dietary Supplements [RC] TIDMEALS 02/08/19 10:00 Magnesium Sulfate/Water [Magnesium Sulfate in Water Premix] 2 gm Premix Bag 1 bag IV ONETIME 02/08/19 10:18 oxyCODONE 5 mg PO Q4H PRN 02/08/19 10:19 Ondansetron [Zofran] 4 mg IV Q4H PRN 02/08/19 13:00 Phosphorus #1 [Neutra-Phos] 250 mg PO QID 02/09/19 05:11 BASIC METABOLIC PANEL,BMP [CHEM] AM CBC W/O DIFF,HEMOGRAM [HEME] AM 02/10/19 05:11 BASIC METABOLIC PANEL,BMP [CHEM] AM CBC W/O DIFF,HEMOGRAM [HEME] AM - Plan Plan:: Abdominal pain Continue oral protonix Check KUB xray Pain mgt Alcohol withdrawal Monitor on the [facility] protocol PRN Ativan per the [facility] protocol Oral thiamine and multivitamin supplementation Monitor electrolytes and replenish as needed Dehydration, improved IV fluid hydration Hyponatremia, improved [sodium of 131], mild hyponatremia Likely related to alcoholism/low caloric intake, tea and toast hyponatremia Monitor sodium levels IV fluid hydration Hypokalemia [potassium of 3.4], Likely secondary to nausea and vomiting Replenish potassium both orally and intravenously Mild acute kidney injury, resolved [creatinine of 0.8 today from 1.4 on admission] IV fluid hydration Monitor creatinine daily Avoid nephrotoxic agents renally dose all medication. Hypomagnesemia magnesium of [1.5], replenish magnesium IV Hypercalcemia, resolved IV fluid hydration Asymptomatic bacteriuria Urinalysis noted However patient has no fever, no urinary symptoms Monitor for now, no antibiotics indicated. Hx of HTN continue home BP meds [amlodipine and metoprolol] Hx of anxiety/depression continue trazodone DVT prophylaxis SC heparin
[2019-02-08] MEDS: Ondansetron 4 MG/2 ML SDV IV PRN ×3 (10:36→20:40)
[2019-02-08] MEDS: oxyCODONE 5 MG Tab PO PRN ×2 (10:47→20:40)
[2019-02-08] MEDS: Phosphorus #1 250 MG Tab PO SCH ×3 (13:51→20:40)
[2019-02-08] MEDS: LORazepam 2 MG/ML Syringe IVPUSH PRN (20:39)
[2019-02-08] MEDS: traZODone 50 MG Tab PO PRN (20:40)
[2019-02-08] MEDS: Thiamine 100 MG Tab PO SCH (20:40)
[2019-02-08] MEDS ORDERED: Nicotine 14 MG/24 Hr Patch TRDERM ONE (22:45)
[2019-02-09] MEDS: LORazepam 1 MG Tab PO PRN (00:11)
[2019-02-09] MEDS: NS + KCl 20mEq/L 1,000 ML IV SCH (01:04)
[2019-02-09 04:27] VITALS: BP 137/81
[2019-02-09] MEDS: LORazepam 2 MG/ML Syringe IVPUSH PRN (05:57)
[2019-02-09] MEDS: Heparin Sodium 5,000 Units/ML Vial SUBCUT SCH (06:21)
[2019-02-09] MEDS: Pantoprazole 40 MG Tab.CR PO SCH (06:22)
[2019-02-09 06:32] LABS: ANION GAP 16.2; CHLORIDE,CL 94 mmol/L (101-111); SODIUM,NA 133 mmol/L (135-145)
--- NOTE | 2019-02-09 09:15 | PCM.DCSUM1 ---
Discharge Summary - Hospital Course Free Text/Narrative:: 58-year-old female with past medical history of hypertension, alcohol abuse disorder, substance abuse disorder, pancreatitis, anxiety disorder, depression, who presents with features of alcohol withdrawal [nausea, vomiting, insomnia, tremulousness, abdominal pain] of 2 days duration. Patient reports going on a 3 week binge of alcohol and stopping suddenly 3 days ago. She cannot estimate the exact amount of alcohol she takes daily but reports that it's a lot. She noted features listed above including nausea, vomiting, insomnia, tremulousness, abdominal pain started on Thursday morning. She states symptoms have been severe, estimating that she had vomited more than 25 times. She decided to come to the emergency room today because of the insomnia. Abdominal pain is epigastric and is related to the frequent vomiting episodes. Vomitus was described as consisting of recently ingested feeds and then became clear. In the ED, she was found to have features of dehydration, mild leukocytosis, elevated hematocrit [47.1], hyponatremia [sodium of 129], hypokalemia [ potassium of 3.4], mild acute kidney injury [creatinine of 1.4], hypomagnesemia magnesium of [1.5], hypercalcemia, bacteriuria, and urine drug screen positive for opiates, benzodiazepines and cannabinoids. Review of systems: She has no urinary symptoms, no fever, no cough, no melena, no hematochezia She was managed conservatively, CIWA protocol was used. She decided to leave AMA when she felt better. - Discharge Data Discharge Date: 02/09/19 Discharge Disposition: Against Medical Advice 07 Condition: Good - Discharge Plan *PRESCRIPTION DRUG MONITORING PROGRAM REVIEWED*: No *COPY OF PRESCRIPTION DRUG MONITORING REPORT IN PATIENT ALINA: No Home Medications: Home Meds Metoprolol Succinate [Toprol XL] 100 mg PO DAILY 01/26/15 [History] Multivitamin [One Daily Multivitamin] 1 tab PO DAILY 01/26/15 [History] amLODIPine [Norvasc] 10 mg PO DAILY 01/26/15 [History] traZODone 100 mg PO BEDTIME PRN 01/26/15 [History] Referrals: PCP,None [Primary Care Provider] - - Discharge Summary/Plan Comment DC Time >30 min.: No - Patient Data Vitals - Most Recent: Last Vital Signs Temp 36.9 C 02/09/19 04:00 Pulse 86 06/12/19 04:00 Resp 18 02/09/19 04:00 BP 137/81 02/09/19 04:00 Pulse Ox 99 02/09/19 04:00 Weight - Most Recent: 50.167 kg I&O - Last 24 hours: Intake & Output 02/08/19 02/09/19 02/09/19 22:59 06:59 14:59 Intake Total 1260 675 Output Total 1800 Balance -540 675 Lab Results - Last 24 hrs: Laboratory Results - last 24 hr 02/09/19 02/09/19 Range/Units 06:03 06:03 WBC 9.7 (5.0-10.0) 10^3/uL RBC 4.94 (4.2-5.4) 10^6/uL Hgb 16.1 H (12.0-16.0) g/dL Hct 49.0 H (37.0-47.0) % MCV 99.2 (80-100) fL MCH 32.6 (27.0-34.0) pg MCHC 32.9 L (33.0-35.0) g/dL Plt Count 117 L (150-450) 10^3/uL Sodium 133 L (135-145) mmol/L Potassium 4.2 (3.6-5.0) mmol/L Chloride 94 L (101-111) mmol/L Carbon Dioxide 27.0 (21.0-31.0) mmol/L Anion Gap 16.2 BUN 10 (7-18) mg/dL Creatinine 0.7 (0.6-1.3) mg/dL Est Cr Clr Drug Dosing 69.38 mL/min Estimated GFR (MDRD) > 60 Glucose 153 H (74-105) mg/dL Calcium 9.6 (8.4-10.2) mg/dl ASHOK Results - Last 24 hrs: Microbiology 02/07/19 16:54 Urine Culture - Preliminary Urine, Voided NO GROWTH AFTER 1 DAY Med Orders - Current: Current Medications Discontinued Medications Acetaminophen (Tylenol) 650 mg PO Q4H PRN PRN Reason: Pain (mild 1-3) Amlodipine Besylate (Norvasc) 10 mg PO DAILY [facility] Last Admin: 02/08/19 09:03 Dose: 10 mg Heparin Sodium (Porcine) (Heparin Sodium) 5,000 units SUBCUT Q8HR [facility] Last Admin: 02/09/19 06:21 Dose: 5,000 units Hydromorphone HCl (Dilaudid) 0.5 mg IVPUSH ONETIME ONE Stop: 02/07/19 15:37 Last Admin: 02/07/19 15:40 Dose: 0.5 mg Multivitamins/Minerals 10 ml/Thiamine HCl 100 mg/ Folic Acid 1 mg/ Lactated Ringer's 1,011.2 mls @ 999 mls/hr IV .BOLUS ONE Stop: 02/07/19 15:40 Last Admin: 02/07/19 15:00 Dose: 999 mls/hr Magnesium Sulfate/Dextrose 2 (gm/ Premix) 200 mls @ 100 mls/hr IV ONETIME ONE Stop: 02/07/19 17:18 Last Admin: 02/07/19 15:29 Dose: 100 mls/hr Sodium Chloride (Normal Saline) 1,000 mls @ 999 mls/hr IV .BOLUS ONE Stop: 02/07/19 17:19 Last Admin: 02/07/19 17:00 Dose: 999 mls/hr Potassium Chloride/Sodium Chloride (Normal Saline With 20 Meq Kcl) 1,000 mls @ 150 mls/hr IV ASDIRECTED [facility] Last Infusion: 02/09/19 06:20 Dose: 150 mls/hr Magnesium Sulfate 2 gm/ Premix 50 mls @ 25 mls/hr IV ONETIME ONE Stop: 02/08/19 11:59 Last Infusion: 02/08/19 12:03 Dose: 25 mls/hr Lorazepam (Ativan) 1 mg IVPUSH ONETIME ONE Stop: 02/07/19 14:40 Last Admin: 02/07/19 15:00 Dose: 1 mg Lorazepam (Ativan) 0 mg PO Q4H PRN; Protocol PRN Reason: Withdrawal Symptoms Lorazepam (Ativan) 0 mg IVPUSH ASDIRECTED PRN; Protocol PRN Reason: Withdrawal Symptoms Lorazepam (Ativan) 0 mg PO ASDIRECTED PRN; Protocol PRN Reason: Withdrawal Symptoms Last Admin: 02/09/19 00:11 Dose: 1 mg Lorazepam (Ativan) 0 mg IVPUSH ASDIRECTED PRN; Protocol PRN Reason: Withdrawal Symptoms Last Admin: 02/09/19 05:57 Dose: 2 mg Metoprolol Succinate (Toprol Xl) 100 mg PO DAILY [facility] Last Admin: 02/08/19 09:02 Dose: 100 mg Miscellaneous Information (Check Patch) 1 ea TRDERM BEDTIME [facility] Multivitamins (Thera) 1 each PO DAILY [facility] Last Admin: 02/08/19 08:59 Dose: 1 each Nicotine (Habitrol) 14 mg TRDERM DAILY@2100 [facility] Nicotine (Habitrol) 14 mg TRDERM ONETIME ONE Stop: 02/08/19 22:46 Last Admin: 02/08/19 22:36 Dose: 14 mg Ondansetron HCl (Zofran) 4 mg IV ONETIME ONE Stop: 02/07/19 14:40 Last Admin: 02/07/19 15:00 Dose: 4 mg Ondansetron HCl (Zofran) 4 mg IV Q6H PRN PRN Reason: Nausea/Vomiting Last Admin: 02/08/19 04:01 Dose: 4 mg Ondansetron HCl (Zofran) 4 mg IV Q4HR PRN PRN Reason: Nausea/Vomiting Last Admin: 02/08/19 20:40 Dose: 4 mg Oxycodone HCl (Oxycodone) 5 mg PO ONETIME ONE Stop: 02/07/19 23:02 Last Admin: 02/07/19 23:21 Dose: 5 mg Oxycodone HCl (Oxycodone) 5 mg PO ONETIME ONE Stop: 02/08/19 03:49 Last Admin: 02/08/19 04:01 Dose: 5 mg Oxycodone HCl (Oxycodone) 5 mg PO Q4HR PRN PRN Reason: Pain (moderate 4-6) Last Admin: 02/08/19 20:40 Dose: 5 mg Pantoprazole Sodium (Protonix Iv) 80 mg IVPUSH .BOLUS ONE Stop: 02/07/19 15:20 Last Admin: 02/07/19 15:29 Dose: 80 mg Pantoprazole Sodium (Protonix) 40 mg PO BIDAC [facility] Last Admin: 02/09/19 06:22 Dose: 40 mg Potassium Chloride (Klor-Con 10) 40 meq PO ONETIME ONE Stop: 02/07/19 19:16 Last Admin: 02/07/19 20:00 Dose: 40 meq Sodium Chloride (Saline Flush) 10 ml FLUSH ASDIRECTED PRN PRN Reason: Keep Vein Open Last Admin: 02/07/19 20:04 Dose: 10 ml Sodium Chloride (Saline Flush) 10 ml FLUSH ASDIRECTED PRN PRN Reason: Keep Vein Open Sodium Phosphate (Neutra-Phos) 250 mg PO QID [facility] Last Admin: 02/08/19 20:40 Dose: 250 mg Thiamine HCl (Vitamin B-1) 100 mg PO BEDTIME [facility] Last Admin: 02/08/19 20:40 Dose: 100 mg Tramadol HCl (Ultram) 50 mg PO Q4H PRN PRN Reason: Pain (moderate 4-6) Last Admin: 02/08/19 09:00 Dose: 50 mg Trazodone HCl (Trazodone) 100 mg PO BEDTIME PRN PRN Reason: Sleep Last Admin: 02/08/19 20:40 Dose: 100 mg
[2019-02-09] MEDS ORDERED: Nicotine 14 MG/24 Hr Patch TRDERM SCH (21:00)
[2019-02-09] MEDS ORDERED: Check Patch TRDERM SCH (21:00)
== END 2019-02-09 06:30 | disposition left against medical advice (07) ==
LOC: DL.ED 14:19 → UNDOADMOB 17:39 → DL.MS 17:39
PROVIDERS: ADMIT Hospitalist; ATTEND Hospitalist
DX: R11.2 Nausea with vomiting, unspecified (principal); E86.0 Dehydration; F10.239 Alcohol dependence with withdrawal, unspecified; E87.1 Hypo-osmolality and hyponatremia; E87.6 Hypokalemia; E83.42 Hypomagnesemia; N17.9 Acute kidney failure, unspecified; E83.52 Hypercalcemia; I10 Essential (primary) hypertension; R82.71 Bacteriuria; F17.210 Nicotine dependence, cigarettes, uncomplicated; Z86.39 Personal history of other endocrine, nutritional and metabolic disease; Z79.899 Other long term (current) drug therapy; Z88.8 Allergy status to other drugs, medicaments and biological substances; Z98.890 Other specified postprocedural states
CPT/HCPCS: 36415; 80048; 80053; 80305; 81001; 82150; 83690; 83735; 84100; 84443; 85025; 85027; 85610; 85730; 87086; 93005; 96365; 96366; 96368; 96375; 99285; A4217; A9270; C9113; G0480; J1170; J1644; J2060; J2405; J3411; J3475; J3480; J7030; J7120; 96361; 96376; G0378; J3490

== ENCOUNTER 2019-09-04 11:45 | Emergency (ER) | payer MEDICAID ==
[2019-09-04 11:53] VITALS: BP 156/117; PULSE 99
[2019-09-04] MEDS ORDERED: Ondansetron 4 MG/2 ML SDV ONE (12:01)
[2019-09-04] MEDS ORDERED: MVI, Adult with Vitamin K 10 ML, Thiamine 100 MG, Folic Acid 1 MG in Lactated Ringers 1... IV ONE ×4 (12:08)
[2019-09-04] MEDS ORDERED: LORazepam 2 MG/ML Syringe IVPUSH ONE (12:08)
[2019-09-04] MEDS ORDERED: Ondansetron 4 MG/2 ML SDV IV ONE (12:08)
[2019-09-04] MEDS ORDERED: Pantoprazole 40 MG Vial IVPUSH ONE (12:09)
[2019-09-04] MEDS ORDERED: Sodium Chloride 0.9% 10 ML Syringe FLUSH PRN (12:10)
--- NOTE | 2019-09-04 12:39 | CR ---
EXAMINATION: Abdomen 3V AP Flat Upright SEX: Female AGE: 59 years CLINICAL HISTORY: 59-year-old "intoxicated" female with abdominal pain/vomiting (no bowel movements for several days). INTERPRETATION: 1. Cluster surgical clips respectively region gallbladder fossa (RUQ), bilaterally in the pelvis (lymph node dissection?), and isolated surgical clip the gastroesophageal juncture. Multiple phleboliths identified bilaterally base of the pelvis. 2. Note: Coarse calcifications clustered in the left upper quadrant abdomen suggest chronic pancreatitis. Clinical? 3. Curvilinear atheromatous calcifications defining normal caliber aortoiliac vessels. 4. Symmetric normal definition renal, splenic, psoas shadows. No abdominal soft tissue mass or current signs of mechanical bowel obstruction. Nonspecific bowel pattern. 5. No free intraperitoneal air. 6. AP lower RIBS, lumbar spine, pelvis and hips unremarkable. Lung bases clear. CONCLUSION: Evidence of extensive surgery. No sign of stool impaction or mechanical bowel obstruction.
[2019-09-04 13:39] LABS: ANION GAP 19.6; CHLORIDE,CL 99 mmol/L (101-111); SODIUM,NA 141 mmol/L (135-145)
[2019-09-04] MEDS ORDERED: Lactulose Soln 10 GM/15 ML 30 ML UD Cup PO ONE (13:45)
--- NOTE | 2019-09-04 13:50 | EDM.PDOC ---
Scribed by Lizzy Vasquez 09/04/19 1216 for Kristian Sumner MD ED HPI GENERAL MEDICAL PROBLEM - General Chief Complaint: Drug or Alcohol Abuse Stated Complaint: VOMITTING Time Seen by Provider: 09/04/19 12:05 Source of Information: Reports: Patient, RN, RN Notes Reviewed History Limitations: Reports: No Limitations - History of Present Illness INITIAL COMMENTS - FREE TEXT/NARRATIVE: Patient presents to ED stating she started vomiting early this am when she awoke. Denies fever or diarrhea. She states that she has been on a patel for some time ending last night. No focal abdominal pain, just sore from vomiting she states. Onset: Gradual Onset Date: 09/03/19 Duration: Constant, Getting Worse Location: Reports: Abdomen Quality: Reports: Ache Severity: Moderate Improves with: Reports: None Worsens with: Reports: None Associated Symptoms: Reports: No Other Symptoms Abdominal Pain Score (Numeric/FACES): 5 - Related Data Allergies Allergy/AdvReac Type Severity Reaction Status Date / Time diphenhydramine Allergy Rash Verified 09/04/19 12:06 [From Benadryl] Home Meds: Home Meds Metoprolol Succinate [Toprol XL] 100 mg PO DAILY 01/26/15 [History] Multivitamin [One Daily Multivitamin] 1 tab PO DAILY 01/26/15 [History] amLODIPine [Norvasc] 10 mg PO DAILY 01/26/15 [History] traZODone 100 mg PO BEDTIME PRN 01/26/15 [History] Past Medical History Cardiovascular History: Reports: Hypertension Respiratory History: Reports: None Gastrointestinal History: Reports: Cholelithiasis, Gastritis, GERD, Pancreatitis Other Gastrointestinal History: pancreatis split open and rerouted to stomach Genitourinary History: Reports: None 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: Musculoskeletal History: Reports: Osteoarthritis Neurological History: Reports: Concussion, Seizure Psychiatric History: Reports: Addiction, Anxiety, Depression, Panic Attack Endocrine/Metabolic History: Reports: Diabetes, Type I Hematologic History: Reports: None Immunologic History: Reports: None Oncologic (Cancer) History: Reports: Cervix Dermatologic History: Reports: None - Infectious Disease History Infectious Disease History: Reports: Chicken Pox, Measles, Mumps - Past Surgical History Head Surgeries/Procedures: Reports: None HEENT Surgical History: Reports: Tonsillectomy GI Surgical History: Reports: Cholecystectomy, Other (See Below) Other GI Surgeries/Procedures: Has esphogeal edema. Female Surgical History: Reports: Hysterectomy Social & Family History - Family History Family Medical History: Noncontributory - Tobacco Use Smoking Status *Q: Current Every Day Smoker Tobacco Use Within Last Twelve Months: Cigarettes - Caffeine Use Caffeine Use: Reports: Coffee - Alcohol Use Alcohol Use History: Yes Days Per Week of Alcohol Use: 7 Date of Last Drink: 09/03/19 Alcohol Use Frequency: Binges - Recreational Drug Use Recreational Drug Use: No - Living Situation & Occupation Living situation: Reports: Alone Occupation: Unemployed ED ROS GENERAL - Review of Systems Review Of Systems: Comprehensive ROS is negative, except as noted in HPI. ED EXAM, GI/ABD - Physical Exam Exam: See Below Exam Limited By: No Limitations General Appearance: Alert, No Apparent Distress, Anxious, Thin Eyes: Bilateral: Normal Appearance (No scleral icterus), EOMI Ears: Normal External Exam Nose: Normal Inspection, Normal Mucosa, No Blood Throat/Mouth: Normal Lips, Normal Oropharynx, Normal Voice, No Airway Compromise , Other (Dry oral membranes) Head: Atraumatic, Normocephalic Neck: Normal Inspection, Supple, Non-Tender, Full Range of Motion. No: Lymphadenopathy (L), Lymphadenopathy (R) Respiratory/Chest: No Respiratory Distress, Lungs Clear, No Accessory Muscle Use , Chest Non-Tender, Decreased Breath Sounds Cardiovascular: Normal Peripheral Pulses, Regular Rate, Rhythm, No Edema GI/Abdominal Exam: Normal Bowel Sounds, Soft, No Distention, No Abnormal Bruit, No Mass, Pelvis Stable, Tender (Epigastric tenderness), Hepatomegaly. No: Guarding, Rigid, Rebound (Female) Exam: Deferred Rectal (Female) Exam: Deferred Back Exam: Normal Inspection Extremities: Normal Inspection, Normal Range of Motion, Non-Tender, Normal Capillary Refill, No Pedal Edema Neurological: Alert, Oriented, CN II-XII Intact, Normal Cognition, No Motor/ Sensory Deficits, Other (Mild tremor B/L upper extremities) Psychiatric: Anxious, Depressed Mood, Flat Affect Skin Exam: Warm, Dry, Rash (dry excoriated scaley rash to B/L dorsal hands and forearms.) Course - Vital Signs Last Recorded V/S: Last Vital Signs Temp 97.8 F 09/04/19 11:49 Pulse 99 09/04/19 11:49 Resp 20 01/05/20 11:49 BP 156/117 H 09/04/19 11:49 Pulse Ox 100 09/04/19 11:49 - Orders/Labs/Meds Orders: Active Orders 24 hr Category Date Time Status Peripheral IV Care [RC] . DIRECTED Care 09/04/19 12:10 Active UA W/MICROSCOPIC [URIN] Stat Lab 09/04/19 12:35 Results Sodium Chloride 0.9% [Saline Flush] Med 09/04/19 12:10 Active 10 ml FLUSH ASDIRECTED PRN Peripheral IV Insertion Adult [OM.PC] Stat Oth 09/04/19 12:09 Ordered Medication Orders Sodium Chloride (Saline Flush) 10 ml FLUSH ASDIRECTED PRN PRN Reason: Keep Vein Open Last Admin: 09/04/19 12:28 Dose: 10 ml Labs: Laboratory Tests 09/04/19 09/04/19 09/04/19 Range/Units 12:35 12:35 12:56 WBC 6.6 (5.0-10.0) 10^3/uL RBC 4.16 L (4.2-5.4) 10^6/uL Hgb 13.7 D (12.0-16.0) g/dL Hct 41.5 (37.0-47.0) % MCV 99.8 (80-100) fL MCH 32.9 (27.0-34.0) pg MCHC 33.0 (33.0-35.0) g/dL Plt Count 141 L (150-450) 10^3/uL Neut % (Auto) 86.3 H (42.2-75.2) % Lymph % (Auto) 7.1 L (20.5-50.1) % Sully % (Auto) 6.2 (2-8) % Eos % (Auto) 0.2 L (1.0-3.0) % Baso % (Auto) 0.2 (0.0-1.0) % PT (9.0-12.0) SEC INR (0.9-1.2) APTT (22.0-34.0) SEC Sodium (135-145) mmol/L Potassium (3.6-5.0) mmol/L Chloride (101-111) mmol/L Carbon Dioxide (21.0-31.0) mmol/L Anion Gap BUN (7-18) mg/dL Creatinine (0.6-1.3) mg/dL Est Cr Clr Drug Dosing mL/min Estimated GFR (MDRD) BUN/Creatinine Ratio Glucose (74-105) mg/dL Calcium (8.4-10.2) mg/dl Total Bilirubin (0.2-1.0) mg/dL AST (10-42) IU/L ALT (10-60) IU/L Alkaline Phosphatase (42-121) IU/L Ammonia (11-35) umol/L Total Protein (6.7-8.2) g/dl Albumin (3.2-5.5) g/dl Globulin Albumin/Globulin Ratio Amylase (28-100) U/L Lipase (22-51) U/L Urine Color Yellow (YELLOW) Urine Appearance Clear (CLEAR) Urine pH 6.0 (5.0-9.0) Ur Specific [place] 1.025 (1.005-1.030) Urine Protein 100 H (NEGATIVE) Urine Glucose (UA) Negative (NEGATIVE) Urine Ketones 40 H (NEGATIVE) Urine Occult Blood Trace-lysed H (NEGATIVE) Urine Nitrite Negative (NEGATIVE) Urine Bilirubin Negative (NEGATIVE) Urine Urobilinogen 0.2 (0.2-1.0) mg/dL Ur Leukocyte Esterase Negative (NEGATIVE) Urine Opiates Screen Negative (NEGATIVE) Ur Oxycodone Screen Negative (NEGATIVE) Urine Methadone Screen Negative (NEGATIVE) Ur Barbiturates Screen Negative (NEGATIVE) U Tricyclic Antidepress Negative (NEGATIVE) Ur Phencyclidine Scrn Negative (NEGATIVE) Ur Amphetamine Screen Negative (NEGATIVE) U Methamphetamines Scrn Negative (NEGATIVE) Urine MDMA Screen Negative (NEGATIVE) U Benzodiazepines Scrn Negative (NEGATIVE) Urine Cocaine Screen Negative (NEGATIVE) U Marijuana (THC) Screen Negative (NEGATIVE) Ethyl Alcohol mg/dL 09/04/19 09/04/19 09/04/19 Range/Units 12:56 12:56 12:56 WBC (5.0-10.0) 10^3/uL RBC (4.2-5.4) 10^6/uL Hgb (12.0-16.0) g/dL Hct (37.0-47.0) % MCV (80-100) fL MCH (27.0-34.0) pg MCHC (33.0-35.0) g/dL Plt Count (150-450) 10^3/uL Neut % (Auto) (42.2-75.2) % Lymph % (Auto) (20.5-50.1) % Sully % (Auto) (2-8) % Eos % (Auto) (1.0-3.0) % Baso % (Auto) (0.0-1.0) % PT 10.0 (9.0-12.0) SEC INR 1.0 (0.9-1.2) APTT 22.1 (22.0-34.0) SEC Sodium 141 (135-145) mmol/L Potassium 3.6 (3.6-5.0) mmol/L Chloride 99 L (101-111) mmol/L Carbon Dioxide 26.0 (21.0-31.0) mmol/L Anion Gap 19.6 BUN 11 (7-18) mg/dL Creatinine 0.9 (0.6-1.3) mg/dL Est Cr Clr Drug Dosing 54.94 mL/min Estimated GFR (MDRD) > 60 BUN/Creatinine Ratio 12.22 Glucose 224 H (74-105) mg/dL Calcium 9.2 (8.4-10.2) mg/dl Total Bilirubin 1.0 (0.2-1.0) mg/dL AST 143 H (10-42) IU/L ALT 108 H (10-60) IU/L Alkaline Phosphatase 94 (42-121) IU/L Ammonia < 9 L (11-35) umol/L Total Protein 7.3 (6.7-8.2) g/dl Albumin 4.3 (3.2-5.5) g/dl Globulin 3.0 Albumin/Globulin Ratio 1.43 Amylase 16 L (28-100) U/L Lipase 17 L (22-51) U/L Urine Color (YELLOW) Urine Appearance (CLEAR) Urine pH (5.0-9.0) Ur Specific [place] (1.005-1.030) Urine Protein (NEGATIVE) Urine Glucose (UA) (NEGATIVE) Urine Ketones (NEGATIVE) Urine Occult Blood (NEGATIVE) Urine Nitrite (NEGATIVE) Urine Bilirubin (NEGATIVE) Urine Urobilinogen (0.2-1.0) mg/dL Ur Leukocyte Esterase (NEGATIVE) Urine Opiates Screen (NEGATIVE) Ur Oxycodone Screen (NEGATIVE) Urine Methadone Screen (NEGATIVE) Ur Barbiturates Screen (NEGATIVE) U Tricyclic Antidepress (NEGATIVE) Ur Phencyclidine Scrn (NEGATIVE) Ur Amphetamine Screen (NEGATIVE) U Methamphetamines Scrn (NEGATIVE) Urine MDMA Screen (NEGATIVE) U Benzodiazepines Scrn (NEGATIVE) Urine Cocaine Screen (NEGATIVE) U Marijuana (THC) Screen (NEGATIVE) Ethyl Alcohol < 5 mg/dL Meds: Medications Generic Name Dose Route Start Last Admin Trade Name Freq PRN Reason Stop Dose Admin Sodium Chloride 10 ml 09/04/19 12:10 09/04/19 12:28 Saline Flush FLUSH 10 ml ASDIRECTED PRN Administration Keep Vein Open Discontinued Medications Generic Name Dose Route Start Last Admin Trade Name Freq PRN Reason Stop Dose Admin Multivitamins/Minerals 10 ml/ 1,011.2 mls @ 999 mls/hr 09/04/19 12:08 12:27 Thiamine HCl 100 mg/ Folic IV 09/04/19 13:08 999 mls/hr Acid 1 mg/ Lactated Ringer's .BOLUS ONE Administration Lactulose 20 gm 09/04/19 13:45 Cephulac PO 09/04/19 13:46 ONETIME ONE Lorazepam 1 mg 09/04/19 12:08 09/04/19 12:28 Ativan IVPUSH 09/04/19 12:09 1 mg ONETIME ONE Administration Ondansetron HCl Confirm 09/04/19 12:01 09/04/19 12:28 Zofran Administered 09/04/19 12:02 Not Given Dose 4 mg .ROUTE .STK-MED ONE Ondansetron HCl 4 mg 09/04/19 12:08 09/04/19 12:28 Zofran IV 09/04/19 12:09 4 mg ONETIME ONE Administration Pantoprazole Sodium 40 mg 09/04/19 12:09 09/04/19 12:28 Protonix Iv IVPUSH 09/04/19 12:10 40 mg ONETIME ONE Administration - Radiology Interpretation Free Text/Narrative:: Abdomen x-ray: Evidence of extensive surgery. No sign of stool impaction or mechanical bowel obstruction. See rad report. Departure - Departure Time of Disposition: 13:46 Disposition: Home, Self-Care 01 Condition: Good Clinical Impression: Hyperglycemia Alcoholic gastritis Qualifiers: Chronicity: acute Gastritis bleeding: without bleeding Qualified Code(s): K29.20 - Alcoholic gastritis without bleeding Constipation Qualifiers: Constipation type: other constipation type Qualified Code(s): K59.09 - Other constipation - Discharge Information *PRESCRIPTION DRUG MONITORING PROGRAM REVIEWED*: No *COPY OF PRESCRIPTION DRUG MONITORING REPORT IN PATIENT ALINA: No Instructions: Gastritis, Adult, [id number], Constipation, Adult, [id number] , Hyperglycemia, [id number], Alcohol Use Disorder Forms: ED Department Discharge Additional Instructions: RX: Zofran 4mg. RX: Omeprazole 20mg. Abstain from alcohol. Clear liquid diet until nausea improved and advance to soft blader diet as tolerated. Follow up in clinic this next week for recheck of gastrointestinal symptoms and diabetic evaluation. Sepsis Event Note - Evaluation Sepsis Screening Result: No Definite Risk - Focused Exam Vital Signs: Vital Signs Temp Pulse Resp BP Pulse Ox 09/04/19 11:49 97.8 F 99 20 156/117 H 100 Date Exam was Performed: 09/04/19 Time Exam was Performed: 13:49 - My Orders Last 24 Hours: My Active Orders 09/04/19 12:09 Peripheral IV Insertion Adult [OM.PC] Stat 09/04/19 12:10 Peripheral IV Care [RC] . DIRECTED Sodium Chloride 0.9% [Saline Flush] 10 ml FLUSH ASDIRECTED PRN 09/04/19 12:35 UA W/MICROSCOPIC [URIN] Stat - Assessment/Plan Last 24 Hours: My Active Orders 09/04/19 12:09 Peripheral IV Insertion Adult [OM.PC] Stat 09/04/19 12:10 Peripheral IV Care [RC] . DIRECTED Sodium Chloride 0.9% [Saline Flush] 10 ml FLUSH ASDIRECTED PRN 09/04/19 12:35 UA W/MICROSCOPIC [URIN] Stat I have read and agree with the documentation that has been completed regarding this visit. By signing this record, I attest that the documentation was completed in my physical presence and is an accurate record of the encounter.
== END 2019-09-04 14:04 | disposition home or self-care (01) ==
LOC: DL.ED 11:45
DX: E10.65 Type 1 diabetes mellitus with hyperglycemia (principal); K29.20 Alcoholic gastritis without bleeding; K59.09 Other constipation; F32.9 Major depressive disorder, single episode, unspecified; I10 Essential (primary) hypertension; F17.210 Nicotine dependence, cigarettes, uncomplicated; Z88.8 Allergy status to other drugs, medicaments and biological substances; Z79.899 Other long term (current) drug therapy
CPT/HCPCS: 36415; 74019; 80053; 80305; 80320; 81001; 82140; 82150; 83690; 85025; 85610; 85730; 96365; 96375; 99284; C9113; J2060; J2405; J3411; J7120; G0480; J3490

== ENCOUNTER 2019-09-08 16:27 | Observation (INO) | payer MEDICAID ==
--- NOTE | 2019-09-08 17:26 | EDM.PDOC ---
ED HPI GENERAL MEDICAL PROBLEM - General Chief Complaint: Drug or Alcohol Abuse Stated Complaint: HIGH BP Time Seen by Provider: 09/08/19 17:04 Source of Information: Reports: Patient, Other ([facility]) History Limitations: Reports: No Limitations - History of Present Illness INITIAL COMMENTS - FREE TEXT/NARRATIVE: This 59 yo female patient was sent to the ED due to a lengthy history of alcohol use, depression and starting to go through withdrawal. The patient reports her last drink was last night. The patient reports she drank "about 1/2 liter of vodka" last night. The patient reports she is currently starting to feel shaky. The [facility] [place] reports the patient was sent to the [facility] to start treatment, but the patient's ANGELA was 1.83 and her CIWA score was 10. The patient's blood pressure at the CRU was 175/110. The patient reports taking her blood pressure medications at 1600. The patient reports she feels like [place] is "toxic" to her. The patient reports she does not have any friends in [place] (where she is currently living) and she spent , [place] and New Years alone. The patient reports after treatment she will be moving to the [facility]. Onset: Today Duration: Constant Location: Reports: Generalized Quality: Reports: Other Severity: Moderate Improves with: Reports: None Worsens with: Reports: None Context: Reports: Other Associated Symptoms: Reports: No Other Symptoms - Related Data Allergies Allergy/AdvReac Type Severity Reaction Status Date / Time diphenhydramine Allergy Rash Verified 09/08/19 16:49 [From Benadryl] Home Meds: Home Meds Metoprolol Succinate [Toprol XL] 100 mg PO DAILY 01/26/15 [History] Multivitamin [One Daily Multivitamin] 1 tab PO DAILY 01/26/15 [History] amLODIPine [Norvasc] 10 mg PO DAILY 01/26/15 [History] traZODone 100 mg PO BEDTIME PRN 01/26/15 [History] Past Medical History HEENT History: Reports: None Cardiovascular History: Reports: Hypertension Respiratory History: Reports: None Gastrointestinal History: Reports: Cholelithiasis, Gastritis, GERD, Pancreatitis Other Gastrointestinal History: pancreatis split open and rerouted to stomach Genitourinary History: Reports: None 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: Musculoskeletal History: Reports: Osteoarthritis Neurological History: Reports: Concussion, Seizure Psychiatric History: Reports: Addiction, Anxiety, Depression, Panic Attack Endocrine/Metabolic History: Reports: Diabetes, Type I Hematologic History: Reports: None Immunologic History: Reports: None Oncologic (Cancer) History: Reports: Cervix Dermatologic History: Reports: None - Infectious Disease History Infectious Disease History: Reports: Chicken Pox, Measles, Mumps - Past Surgical History Head Surgeries/Procedures: Reports: None HEENT Surgical History: Reports: Tonsillectomy GI Surgical History: Reports: Cholecystectomy, Other (See Below) Other GI Surgeries/Procedures: Has esphogeal edema. Female Surgical History: Reports: Hysterectomy Social & Family History - Family History Family Medical History: Noncontributory - Tobacco Use Smoking Status *Q: Current Every Day Smoker Years of Tobacco use: 45 Packs/Tins Daily: 0.5 Second Hand Smoke Exposure: No - Caffeine Use Caffeine Use: Reports: Coffee, Soda - Alcohol Use Date of Last Drink: 09/07/19 - Recreational Drug Use Recreational Drug Use: Yes Recreational Drug Type: Reports: Marijuana/Hashish - Living Situation & Occupation Living situation: Reports: Alone Occupation: Unemployed ED ROS GENERAL - Review of Systems Review Of Systems: Comprehensive ROS is negative, except as noted in HPI. ED EXAM, GENERAL - Physical Exam Exam: See Below Exam Limited By: No Limitations General Appearance: Alert, WD/WN, Moderate Distress Eye Exam: Bilateral Eye: EOMI, Normal Inspection, PERRL Ears: Normal External Exam, Normal Canal, Hearing Grossly Normal, Normal TMs Nose: Normal Inspection, Normal Mucosa, No Blood Throat/Mouth: Normal Inspection, Normal Lips, Normal Teeth, Normal Gums, Normal Oropharynx, Normal Voice, No Airway Compromise Head: Atraumatic, Normocephalic Neck: Normal Inspection, Supple, Non-Tender, Full Range of Motion Respiratory/Chest: No Respiratory Distress, Lungs Clear, Normal Breath Sounds, No Accessory Muscle Use, Chest Non-Tender Cardiovascular: Normal Peripheral Pulses, Regular Rate, Rhythm, No Edema, No Gallop, No JVD, No Murmur, No Rub GI/Abdominal: Normal Bowel Sounds, Soft, Non-Tender, No Organomegaly, No Distention, No Abnormal Bruit, No Mass (Female) Exam: Deferred Rectal (Female) Exam: Deferred Back Exam: Normal Inspection, Full Range of Motion, NT Extremities: Normal Inspection, Normal Range of Motion, Non-Tender, Normal Capillary Refill, No Pedal Edema Neurological: Alert, Oriented, CN II-XII Intact, Normal Cognition, Normal Gait, Normal Reflexes, No Motor/Sensory Deficits Psychiatric: Depressed Mood, Flat Affect Skin Exam: Warm, Dry, Intact, Normal Color, Rash (on hands ) Lymphatic: No Adenopathy Course - Vital Signs Last Recorded V/S: Last Vital Signs Temp 36.7 C 09/08/19 16:46 Pulse 99 09/08/19 16:46 Resp 16 09/08/19 16:46 BP 166/99 H 09/08/19 16:46 Pulse Ox 99 09/08/19 16:46 - Orders/Labs/Meds Orders: Active Orders 24 hr Category Date Time Status ACETAMINOPHEN [CHEM] Stat Lab 09/08/19 17:04 Ordered CBC WITH AUTO DIFF [HEME] Urgent Lab 09/08/19 17:04 Ordered COMPREHENSIVE METABOLIC PN,CMP [CHEM] Urgent Lab 09/08/19 17:04 Ordered DRUG SCREEN URINE BIORAD [URCHEM] Stat Lab 09/08/19 17:04 Ordered ETHANOL BLOOD MEDICAL [CHEM] Stat Lab 09/08/19 17:04 Ordered SALICYLATE [CHEM] Stat Lab 09/08/19 17:04 Ordered UA RFX ASHOK AND CULT IF INDIC [URIN] Urgent Lab 09/08/19 17:04 Ordered Departure - Departure Time of Disposition: 18:18 Disposition: Admitted As Inpatient 66 Condition: Fair Clinical Impression: Alcohol withdrawal syndrome Qualifiers: Complication of substance-induced condition: with unspecified complication Qualified Code(s): F10.239 - Alcohol dependence with withdrawal, unspecified - Discharge Information *PRESCRIPTION DRUG MONITORING PROGRAM REVIEWED*: Not Applicable *COPY OF PRESCRIPTION DRUG MONITORING REPORT IN PATIENT ALINA: Not Applicable Care Plan Goals: Discussed the patient's history, examination, lab results and treatments with Dr. Liu. Dr. Liu accepted the patient for continued evaluation and further management as an observation patient at [facility] in [place]. Sepsis Event Note - Evaluation Sepsis Screening Result: No Definite Risk - Focused Exam Vital Signs: Vital Signs Temp Pulse Resp BP Pulse Ox 09/08/19 16:46 36.7 C 99 16 166/99 H 99 Date Exam was Performed: 09/08/19 Time Exam was Performed: 17:15 - My Orders Last 24 Hours: My Active Orders 09/08/19 17:04 ACETAMINOPHEN [CHEM] Stat CBC WITH AUTO DIFF [HEME] Urgent COMPREHENSIVE METABOLIC PN,CMP [CHEM] Urgent DRUG SCREEN URINE BIORAD [URCHEM] Stat ETHANOL BLOOD MEDICAL [CHEM] Stat SALICYLATE [CHEM] Stat UA RFX ASHOK AND CULT IF INDIC [URIN] Urgent - Assessment/Plan Last 24 Hours: My Active Orders 09/08/19 17:04 ACETAMINOPHEN [CHEM] Stat CBC WITH AUTO DIFF [HEME] Urgent COMPREHENSIVE METABOLIC PN,CMP [CHEM] Urgent DRUG SCREEN URINE BIORAD [URCHEM] Stat ETHANOL BLOOD MEDICAL [CHEM] Stat SALICYLATE [CHEM] Stat UA RFX ASHOK AND CULT IF INDIC [URIN] Urgent
[2019-09-08] MEDS ORDERED: MVI, Adult with Vitamin K 10 ML, Folic Acid 1 MG, Thiamine 100 MG in Lactated Ringers 1... IV ONE ×4 (17:39)
[2019-09-08 17:44] LABS: ANION GAP 17.9; CHLORIDE,CL 93 mmol/L (101-111); SODIUM,NA 137 mmol/L (135-145)
[2019-09-08 17:45] LABS: ACETAMINOPHEN < 10.0 ug/mL
[2019-09-08] MEDS ORDERED: LORazepam 2 MG/ML Syringe IVPUSH ONE (18:14)
[2019-09-08] MEDS ORDERED: Non-Formulary Medication 1 Each (Trazodone 100 MG) PO PRN (19:50)
[2019-09-08] MEDS ORDERED: LORazepam 2 MG/ML Syringe IVPUSH PRN (19:51)
[2019-09-08] MEDS ORDERED: Ondansetron 4 MG/2 ML SDV IVPUSH PRN (19:54)
[2019-09-08] MEDS ORDERED: 50% Dextrose in Water 50 ML Syringe IVPUSH PRN (20:04)
--- NOTE | 2019-09-08 20:04 | PCM.HP ---
H&P History of Present Illness - General Date of Service: 09/08/19 Admit Problem/Dx: Admission Diagnosis/Problem Admission Diagnosis/Problem Alcohol withdrawal syndrome Source of Information: Patient, Provider - History of Present Illness Initial Comments - Free Text/Narative: 59-year-old lady with a history of prediabetes, hypertension. The patient has been drinking heavily about 1 bottle of vodka, every day for the past weeks. She has been feeling lonely. She was planning to get into a residential treatment program but was noted to have high blood pressure and was referred to the emergency room. In the emergency room she was noted to have significant tremor. Ativan was given. - Related Data Allergies/Adverse Reactions: Allergies Allergy/AdvReac Type Severity Reaction Status Date / Time diphenhydramine Allergy Rash Verified 09/08/19 19:16 [From Benadryl] Home Medications: Home Meds Metoprolol Succinate [Toprol XL] 100 mg PO DAILY 01/26/15 [History] Multivitamin [One Daily Multivitamin] 1 tab PO DAILY 01/26/15 [History] amLODIPine [Norvasc] 10 mg PO DAILY 01/26/15 [History] traZODone 100 mg PO BEDTIME PRN 01/26/15 [History] Past Medical History HEENT History: Reports: None Cardiovascular History: Reports: Hypertension Respiratory History: Reports: None Gastrointestinal History: Reports: Cholelithiasis, Gastritis, GERD, Pancreatitis Other Gastrointestinal History: pancreatis split open and rerouted to stomach Genitourinary History: Reports: None MANAGEMENT ADVISOR History: Reports: Musculoskeletal History: Reports: Osteoarthritis Neurological History: Reports: Concussion, Seizure Psychiatric History: Reports: Addiction, Anxiety, Depression, Panic Attack Endocrine/Metabolic History: Reports: Diabetes, Type I Hematologic History: Reports: None Immunologic History: Reports: None Oncologic (Cancer) History: Reports: Cervix Dermatologic History: Reports: None - Infectious Disease History Infectious Disease History: Reports: Chicken Pox, Measles, Mumps - Past Surgical History Head Surgeries/Procedures: Reports: None HEENT Surgical History: Reports: Tonsillectomy GI Surgical History: Reports: Cholecystectomy, Other (See Below) Other GI Surgeries/Procedures: Has esphogeal edema. Female Surgical History: Reports: Hysterectomy Social & Family History - Family History Family Medical History: Noncontributory - Tobacco Use Smoking Status *Q: Current Every Day Smoker Years of Tobacco use: 45 Packs/Tins Daily: 0.5 Second Hand Smoke Exposure: No - Caffeine Use Caffeine Use: Reports: Coffee, Soda - Alcohol Use Date of Last Drink: 09/07/19 - Recreational Drug Use Recreational Drug Use: Yes Recreational Drug Type: Reports: Marijuana/Hashish - Living Situation & Occupation Living situation: Reports: Alone Occupation: Unemployed H&P Review of Systems - Review of Systems: Review Of Systems: See Below General: Denies: Fever Pulmonary: Denies: Shortness of Breath Cardiovascular: Denies: Chest Pain, Edema Genitourinary: Denies: Dysuria Skin: Reports: Other (Bilateral hand erythematous dry skin) Exam - Exam Exam: See Below - Vital Signs Vital Signs: Last Vital Signs Temp 36.9 C 09/08/19 19:24 Pulse 88 09/08/19 19:24 Resp 18 09/08/19 19:24 BP 156/90 H 09/08/19 19:24 Pulse Ox 98 09/08/19 19:24 Weight: 53.524 kg - Exam General: Alert, Oriented Neck: Supple Lungs: Clear to Auscultation, Normal Respiratory Effort Cardiovascular: Regular Rate, Regular Rhythm GI/Abdominal Exam: Normal Bowel Sounds, Soft, Non-Tender Extremities: No Pedal Edema Skin: Rash (Bilateral dorsum of the hands dry hyperkeratotic) Neuro Extensive - Mental Status: Alert, Oriented x3, Normal Mood/Affect Neuro Extensive - Motor, Sensory, Reflexes: Tremor (Mild bilateral upper extremity) Psychiatric: Alert, Normal Affect, Normal Mood - Patient Data Lab Results Last 24 hrs: Laboratory Results - last 24 hr 09/08/19 09/08/19 09/08/19 Range/Units 17:16 17:16 17:16 WBC 9.6 (5.0-10.0) 10^3/uL RBC 4.86 (4.2-5.4) 10^6/uL Hgb 16.0 D (12.0-16.0) g/dL Hct 47.4 H (37.0-47.0) % MCV 97.5 (80-100) fL MCH 32.9 (27.0-34.0) pg MCHC 33.8 (33.0-35.0) g/dL Plt Count 225 D (150-450) 10^3/uL Neut % (Auto) 70.3 (42.2-75.2) % Lymph % (Auto) 18.3 L (20.5-50.1) % [place] % (Auto) 10.2 H (2-8) % Eos % (Auto) 0.7 L (1.0-3.0) % Baso % (Auto) 0.5 (0.0-1.0) % Sodium 137 (135-145) mmol/L Potassium 3.9 (3.6-5.0) mmol/L Chloride 93 L (101-111) mmol/L Carbon Dioxide 30.0 (21.0-31.0) mmol/L Anion Gap 17.9 BUN 11 (7-18) mg/dL Creatinine 0.8 (0.6-1.3) mg/dL Est Cr Clr Drug Dosing 63.98 mL/min Estimated GFR (MDRD) > 60 BUN/Creatinine Ratio 13.75 Glucose 276 H (74-105) mg/dL Calcium 9.5 (8.4-10.2) mg/dl Total Bilirubin 0.6 (0.2-1.0) mg/dL AST 118 H (10-42) IU/L ALT 99 H (10-60) IU/L Alkaline Phosphatase 114 (42-121) IU/L Total Protein 8.2 (6.7-8.2) g/dl Albumin 4.6 (3.2-5.5) g/dl Globulin 3.6 Albumin/Globulin Ratio 1.28 Urine Color (YELLOW) Urine Appearance (CLEAR) Urine pH (5.0-9.0) Ur Specific [place] (1.005-1.030) Urine Protein (NEGATIVE) Urine Glucose (UA) (NEGATIVE) Urine Ketones (NEGATIVE) Urine Occult Blood (NEGATIVE) Urine Nitrite (NEGATIVE) Urine Bilirubin (NEGATIVE) Urine Urobilinogen (0.2-1.0) mg/dL Ur Leukocyte Esterase (NEGATIVE) Urine RBC /HPF Urine WBC (0-5/HPF) /HPF Ur Epithelial Cells (NOT SEEN) /HPF Urine Bacteria (0-FEW/HPF) /HPF Salicylates < 4.0 mg/dL Urine Opiates Screen (NEGATIVE) Ur Oxycodone Screen (NEGATIVE) Urine Methadone Screen (NEGATIVE) Acetaminophen < 10.0 ug/mL Ur Barbiturates Screen (NEGATIVE) U Tricyclic Antidepress (NEGATIVE) Ur Phencyclidine Scrn (NEGATIVE) Ur Amphetamine Screen (NEGATIVE) U Methamphetamines Scrn (NEGATIVE) Urine MDMA Screen (NEGATIVE) U Benzodiazepines Scrn (NEGATIVE) Urine Cocaine Screen (NEGATIVE) U Marijuana (THC) Screen (NEGATIVE) Ethyl Alcohol < 5 mg/dL 09/08/19 09/08/19 Range/Units 17:23 17:23 WBC (5.0-10.0) 10^3/uL RBC (4.2-5.4) 10^6/uL Hgb (12.0-16.0) g/dL Hct (37.0-47.0) % MCV (80-100) fL MCH (27.0-34.0) pg MCHC (33.0-35.0) g/dL Plt Count (150-450) 10^3/uL Neut % (Auto) (42.2-75.2) % Lymph % (Auto) (20.5-50.1) % [place] % (Auto) (2-8) % Eos % (Auto) (1.0-3.0) % Baso % (Auto) (0.0-1.0) % Sodium (135-145) mmol/L Potassium (3.6-5.0) mmol/L Chloride (101-111) mmol/L Carbon Dioxide (21.0-31.0) mmol/L Anion Gap BUN (7-18) mg/dL Creatinine (0.6-1.3) mg/dL Est Cr Clr Drug Dosing mL/min Estimated GFR (MDRD) BUN/Creatinine Ratio Glucose (74-105) mg/dL Calcium (8.4-10.2) mg/dl Total Bilirubin (0.2-1.0) mg/dL AST (10-42) IU/L ALT (10-60) IU/L Alkaline Phosphatase (42-121) IU/L Total Protein (6.7-8.2) g/dl Albumin (3.2-5.5) g/dl Globulin Albumin/Globulin Ratio Urine Color Yellow (YELLOW) Urine Appearance Slightly cloudy (CLEAR) Urine pH 7.5 (5.0-9.0) Ur Specific [place] 1.025 (1.005-1.030) Urine Protein 100 H (NEGATIVE) Urine Glucose (UA) 500 H (NEGATIVE) Urine Ketones Negative (NEGATIVE) Urine Occult Blood Trace-intact H (NEGATIVE) Urine Nitrite Negative (NEGATIVE) Urine Bilirubin Negative (NEGATIVE) Urine Urobilinogen 0.2 (0.2-1.0) mg/dL Ur Leukocyte Esterase Negative (NEGATIVE) Urine RBC 0-5 /HPF Urine WBC Not seen (0-5/HPF) /HPF Ur Epithelial Cells Few (NOT SEEN) /HPF Urine Bacteria Few (0-FEW/HPF) /HPF Salicylates mg/dL Urine Opiates Screen Negative (NEGATIVE) Ur Oxycodone Screen Negative (NEGATIVE) Urine Methadone Screen Negative (NEGATIVE) Acetaminophen ug/mL Ur Barbiturates Screen Negative (NEGATIVE) U Tricyclic Antidepress Negative (NEGATIVE) Ur Phencyclidine Scrn Negative (NEGATIVE) Ur Amphetamine Screen Negative (NEGATIVE) U Methamphetamines Scrn Negative (NEGATIVE) Urine MDMA Screen Negative (NEGATIVE) U Benzodiazepines Scrn Negative (NEGATIVE) Urine Cocaine Screen Negative (NEGATIVE) U Marijuana (THC) Screen Negative (NEGATIVE) Ethyl Alcohol mg/dL Result Diagrams: 09/08/19 17:16 09/08/19 17:16 - Problem List (1) Alcohol abuse SNOMED Code(s): 60735991 ICD Code: F10.10 - ALCOHOL ABUSE, UNCOMPLICATED Status: Acute Current Visit: No (2) Alcohol withdrawal SNOMED Code(s): 953988454 ICD Code: F10.239 - ALCOHOL DEPENDENCE WITH WITHDRAWAL, UNSPECIFIED Status : Acute Current Visit: No Qualifiers: Complication of substance-induced condition: with unspecified complication Qualified Code(s): F10.239 - Alcohol dependence with withdrawal, unspecified (3) Hyperglycemia SNOMED Code(s): 66088977 ICD Code: R73.9 - HYPERGLYCEMIA, UNSPECIFIED Status: Acute Current Visit : No Problem List Initiated/Reviewed/Updated: Yes Orders Last 24hrs: Active Orders 24 hr Category Date Time Status Admission Diagnosis [ADT] Urgent ADT 09/08/19 18:18 Ordered Admission Status [Patient Status] [ADT] Routine ADT 09/08/19 18:18 Active Antiembolic Devices [RC] PER UNIT ROUTINE Care 09/08/19 19:55 Active Glucose [Blood Glucose Check, Bedside] [RC] QIDACANDBED Care 09/08/19 19:51 Active Oxygen Therapy [RC] PRN Care 09/08/19 19:54 Active Up With Assistance [RC] ASDIRECTED Care 09/08/19 19:54 Active VTE/DVT Education [RC] PER UNIT ROUTINE Care 09/08/19 19:54 Active Vital Signs [RC] Q4H Care 09/08/19 19:54 Active Regular Diet [DIET] Diet 09/08/19 Breakfast Active BASIC METABOLIC PANEL,BMP [CHEM] AM Lab 09/09/19 05:11 Ordered MAGNESIUM [CHEM] AM Lab 09/09/19 05:11 Ordered PHOSPHORUS [CHEM] AM Lab 09/09/19 05:11 Ordered Folic Acid Med 09/08/19 20:00 Ordered 1 mg IV DAILY Heparin Sodium Med 09/08/19 22:00 Active 5,000 units SUBCUT Q8HR Insulin Lispro [HumaLOG] Med 09/08/19 21:00 Active See Protocol SUBCUT ACBED LORazepam [Ativan] Med 09/08/19 19:51 Active See Protocol IVPUSH TITRATE PRN LORazepam [Ativan] Med 09/08/19 19:51 Active See Protocol PO Q1H PRN Metoprolol Succinate [Toprol XL] Med 09/09/19 09:00 Ordered 100 mg PO DAILY Multivitamins,Therapeutic [Thera] Med 09/09/19 21:00 Active 1 each PO BEDTIME Ondansetron [Zofran] Med 09/08/19 19:54 Active 4 mg IVPUSH Q4H PRN Thiamine [Vitamin B-1] Med 09/08/19 20:00 Ordered 100 mg IV DAILY amLODIPine [Norvasc] Med 09/09/19 09:00 Active 10 mg PO DAILY traZODone Med 09/08/19 19:50 Active 100 mg PO BEDTIME PRN Antiembolic Hose [OM.PC] Per Unit Routine Oth 09/08/19 19:54 Ordered Resuscitation Status Routine Resus Stat 09/08/19 19:54 Ordered Medication Orders Amlodipine Besylate (Norvasc) 10 mg PO DAILY [facility] Folic Acid (Folic Acid) 1 mg IV DAILY [facility] Heparin Sodium (Porcine) (Heparin Sodium) 5,000 units SUBCUT Q8HR [facility] Insulin Human Lispro (Humalog) 0 unit SUBCUT ACBED [facility]; Protocol Lorazepam (Ativan) 0 mg IVPUSH TITRATE PRN; Protocol PRN Reason: Withdrawal Symptoms Lorazepam (Ativan) 0 mg PO Q1H PRN; Protocol PRN Reason: Withdrawal Symptoms Multivitamins (Thera) 1 each PO BEDTIME [facility] Non-Formulary Medication (Metoprolol Succinate [Toprol Xl]) 100 mg PO DAILY [facility] Non-Formulary Medication (Trazodone) 100 mg PO BEDTIME PRN PRN Reason: Sleep Ondansetron HCl (Zofran) 4 mg IVPUSH Q4H PRN PRN Reason: Nausea/Vomiting Thiamine HCl (Vitamin B-1) 100 mg IV DAILY [facility] Assessment/Plan Comment:: 1. Acute alcohol withdrawal. We will give the patient IV fluids with IV electrolyte replacement. Follow electrolytes. Frequent evaluations and titration of Ativan per the [facility] protocol 2. Chronic Alcohol addiction. Consult Social Work and evaluate for alcohol treatment programs. 3. Chronic alcohol use. Supplement thiamine, folate and multivitamin. 4. Htn resume norvasc, metoprolol 5. hyperglycemia noted h/o glucose intolerance not on medications will follow BS use supplemental insulin as needed 6. Deep venous thrombosis (DVT) prophylaxis will be with subcutaneous heparin.
[2019-09-08] MEDS: Insulin Lispro 100 Units/ML 3 ML Vial SUBCUT SCH (21:45)
[2019-09-08] MEDS: traZODone 50 MG Tab PO PRN (22:31)
[2019-09-08] MEDS: LORazepam 1 MG Tab PO PRN (22:31)
[2019-09-08] MEDS: Heparin Sodium 5,000 Units/ML Vial SUBCUT SCH (22:32)
[2019-09-09] MEDS ORDERED: Sodium Chloride 0.9% 1,000 ML IV SCH (01:30)
[2019-09-09] MEDS: Heparin Sodium 5,000 Units/ML Vial SUBCUT SCH ×4 (06:05→21:43)
[2019-09-09 06:59] LABS: ANION GAP 13.1; CHLORIDE,CL 100 mmol/L (101-111); SODIUM,NA 137 mmol/L (135-145)
[2019-09-09] MEDS ORDERED: Thiamine 200 MG/2 ML MDV IV SCH ×2 (09:00→20:00)
[2019-09-09] MEDS: amLODIPine 5 MG Tab PO SCH (11:21)
[2019-09-09] MEDS: Potassium Chloride 10 MEQ Tab.ER PO SCH ×2 (11:21→18:00)
[2019-09-09] MEDS: Metoprolol Succinate 50 MG Tab.ER PO SCH (11:22)
[2019-09-09] MEDS: Insulin Lispro 100 Units/ML 3 ML Vial SUBCUT SCH ×4 (11:22→21:44)
[2019-09-09] MEDS: LORazepam 1 MG Tab PO PRN ×2 (11:27→21:42)
--- NOTE | 2019-09-09 12:56 | PCM.PN ---
- General Info Date of Service: 09/09/19 Admission Dx/Problem (Free Text): Admission Diagnosis/Problem Admission Diagnosis/Problem Alcohol withdrawal syndrome Subjective Update: feeling better slept well mild tremor associated with mod anxiety no sob, no cp Functional Status: Reports: Tolerating Diet - Review of Systems General: Denies: Fever, Weakness Pulmonary: Denies: Shortness of Breath Cardiovascular: Denies: Chest Pain Gastrointestinal: Denies: Abdominal Pain Neurological: Denies: Confusion - Patient Data Vitals - Most Recent: Last Vital Signs Temp 37.2 C 09/09/19 11:40 Pulse 81 09/09/19 11:40 Resp 20 09/09/19 11:40 BP 158/104 H 09/09/19 11:40 Pulse Ox 100 09/09/19 11:40 Weight - Most Recent: 51.437 kg I&O - Last 24 Hours: Intake & Output 09/08/19 09/09/19 09/09/19 22:59 06:59 14:59 Intake Total 400 100 480 Output Total 1000 250 400 Balance -600 -150 80 Lab Results Last 24 Hours: Laboratory Results - last 24 hr 09/08/19 09/08/19 09/08/19 Range/Units 17:16 17:16 17:16 WBC 9.6 (5.0-10.0) 10^3/uL RBC 4.86 (4.2-5.4) 10^6/uL Hgb 16.0 D (12.0-16.0) g/dL Hct 47.4 H (37.0-47.0) % MCV 97.5 (80-100) fL MCH 32.9 (27.0-34.0) pg MCHC 33.8 (33.0-35.0) g/dL Plt Count 225 D (150-450) 10^3/uL Neut % (Auto) 70.3 (42.2-75.2) % Lymph % (Auto) 18.3 L (20.5-50.1) % [place] % (Auto) 10.2 H (2-8) % Eos % (Auto) 0.7 L (1.0-3.0) % Baso % (Auto) 0.5 (0.0-1.0) % Sodium 137 (135-145) mmol/L Potassium 3.9 (3.6-5.0) mmol/L Chloride 93 L (101-111) mmol/L Carbon Dioxide 30.0 (21.0-31.0) mmol/L Anion Gap 17.9 BUN 11 (7-18) mg/dL Creatinine 0.8 (0.6-1.3) mg/dL Est Cr Clr Drug Dosing 63.98 mL/min Estimated GFR (MDRD) > 60 BUN/Creatinine Ratio 13.75 Glucose 276 H (74-105) mg/dL POC Glucose (70-105) mg/dl Calcium 9.5 (8.4-10.2) mg/dl Phosphorus (2.5-4.6) mg/dL Magnesium (1.8-2.5) mg/dL Total Bilirubin 0.6 (0.2-1.0) mg/dL AST 118 H (10-42) IU/L ALT 99 H (10-60) IU/L Alkaline Phosphatase 114 (42-121) IU/L Total Protein 8.2 (6.7-8.2) g/dl Albumin 4.6 (3.2-5.5) g/dl Globulin 3.6 Albumin/Globulin Ratio 1.28 Urine Color (YELLOW) Urine Appearance (CLEAR) Urine pH (5.0-9.0) Ur Specific [place] (1.005-1.030) Urine Protein (NEGATIVE) Urine Glucose (UA) (NEGATIVE) Urine Ketones (NEGATIVE) Urine Occult Blood (NEGATIVE) Urine Nitrite (NEGATIVE) Urine Bilirubin (NEGATIVE) Urine Urobilinogen (0.2-1.0) mg/dL Ur Leukocyte Esterase (NEGATIVE) Urine RBC /HPF Urine WBC (0-5/HPF) /HPF Ur Epithelial Cells (NOT SEEN) /HPF Urine Bacteria (0-FEW/HPF) /HPF Salicylates < 4.0 mg/dL Urine Opiates Screen (NEGATIVE) Ur Oxycodone Screen (NEGATIVE) Urine Methadone Screen (NEGATIVE) Acetaminophen < 10.0 ug/mL Ur Barbiturates Screen (NEGATIVE) U Tricyclic Antidepress (NEGATIVE) Ur Phencyclidine Scrn (NEGATIVE) Ur Amphetamine Screen (NEGATIVE) U Methamphetamines Scrn (NEGATIVE) Urine MDMA Screen (NEGATIVE) U Benzodiazepines Scrn (NEGATIVE) Urine Cocaine Screen (NEGATIVE) U Marijuana (THC) Screen (NEGATIVE) Ethyl Alcohol < 5 mg/dL 09/08/19 09/08/19 09/08/19 Range/Units 17:23 17:23 20:51 WBC (5.0-10.0) 10^3/uL RBC (4.2-5.4) 10^6/uL Hgb (12.0-16.0) g/dL Hct (37.0-47.0) % MCV (80-100) fL MCH (27.0-34.0) pg MCHC (33.0-35.0) g/dL Plt Count (150-450) 10^3/uL Neut % (Auto) (42.2-75.2) % Lymph % (Auto) (20.5-50.1) % [place] % (Auto) (2-8) % Eos % (Auto) (1.0-3.0) % Baso % (Auto) (0.0-1.0) % Sodium (135-145) mmol/L Potassium (3.6-5.0) mmol/L Chloride (101-111) mmol/L Carbon Dioxide (21.0-31.0) mmol/L Anion Gap BUN (7-18) mg/dL Creatinine (0.6-1.3) mg/dL Est Cr Clr Drug Dosing mL/min Estimated GFR (MDRD) BUN/Creatinine Ratio Glucose (74-105) mg/dL POC Glucose 118 H (70-105) mg/dl Calcium (8.4-10.2) mg/dl Phosphorus (2.5-4.6) mg/dL Magnesium (1.8-2.5) mg/dL Total Bilirubin (0.2-1.0) mg/dL AST (10-42) IU/L ALT (10-60) IU/L Alkaline Phosphatase (42-121) IU/L Total Protein (6.7-8.2) g/dl Albumin (3.2-5.5) g/dl Globulin Albumin/Globulin Ratio Urine Color Yellow (YELLOW) Urine Appearance Slightly cloudy (CLEAR) Urine pH 7.5 (5.0-9.0) Ur Specific [place] 1.025 (1.005-1.030) Urine Protein 100 H (NEGATIVE) Urine Glucose (UA) 500 H (NEGATIVE) Urine Ketones Negative (NEGATIVE) Urine Occult Blood Trace-intact H (NEGATIVE) Urine Nitrite Negative (NEGATIVE) Urine Bilirubin Negative (NEGATIVE) Urine Urobilinogen 0.2 (0.2-1.0) mg/dL Ur Leukocyte Esterase Negative (NEGATIVE) Urine RBC 0-5 /HPF Urine WBC Not seen (0-5/HPF) /HPF Ur Epithelial Cells Few (NOT SEEN) /HPF Urine Bacteria Few (0-FEW/HPF) /HPF Salicylates mg/dL Urine Opiates Screen Negative (NEGATIVE) Ur Oxycodone Screen Negative (NEGATIVE) Urine Methadone Screen Negative (NEGATIVE) Acetaminophen ug/mL Ur Barbiturates Screen Negative (NEGATIVE) U Tricyclic Antidepress Negative (NEGATIVE) Ur Phencyclidine Scrn Negative (NEGATIVE) Ur Amphetamine Screen Negative (NEGATIVE) U Methamphetamines Scrn Negative (NEGATIVE) Urine MDMA Screen Negative (NEGATIVE) U Benzodiazepines Scrn Negative (NEGATIVE) Urine Cocaine Screen Negative (NEGATIVE) U Marijuana (THC) Screen Negative (NEGATIVE) Ethyl Alcohol mg/dL 09/09/19 09/09/19 09/09/19 Range/Units 06:00 07:51 11:48 WBC (5.0-10.0) 10^3/uL RBC (4.2-5.4) 10^6/uL Hgb (12.0-16.0) g/dL Hct (37.0-47.0) % MCV (80-100) fL MCH (27.0-34.0) pg MCHC (33.0-35.0) g/dL Plt Count (150-450) 10^3/uL Neut % (Auto) (42.2-75.2) % Lymph % (Auto) (20.5-50.1) % [place] % (Auto) (2-8) % Eos % (Auto) (1.0-3.0) % Baso % (Auto) (0.0-1.0) % Sodium 137 (135-145) mmol/L Potassium 3.1 L (3.6-5.0) mmol/L Chloride 100 L (101-111) mmol/L Carbon Dioxide 27.0 (21.0-31.0) mmol/L Anion Gap 13.1 BUN 12 (7-18) mg/dL Creatinine 0.9 (0.6-1.3) mg/dL Est Cr Clr Drug Dosing 54.65 mL/min Estimated GFR (MDRD) > 60 BUN/Creatinine Ratio Glucose 130 H (74-105) mg/dL POC Glucose 124 H 148 H (70-105) mg/dl Calcium 9.0 (8.4-10.2) mg/dl Phosphorus 3.8 (2.5-4.6) mg/dL Magnesium 1.5 L (1.8-2.5) mg/dL Total Bilirubin (0.2-1.0) mg/dL AST (10-42) IU/L ALT (10-60) IU/L Alkaline Phosphatase (42-121) IU/L Total Protein (6.7-8.2) g/dl Albumin (3.2-5.5) g/dl Globulin Albumin/Globulin Ratio Urine Color (YELLOW) Urine Appearance (CLEAR) Urine pH (5.0-9.0) Ur Specific [place] (1.005-1.030) Urine Protein (NEGATIVE) Urine Glucose (UA) (NEGATIVE) Urine Ketones (NEGATIVE) Urine Occult Blood (NEGATIVE) Urine Nitrite (NEGATIVE) Urine Bilirubin (NEGATIVE) Urine Urobilinogen (0.2-1.0) mg/dL Ur Leukocyte Esterase (NEGATIVE) Urine RBC /HPF Urine WBC (0-5/HPF) /HPF Ur Epithelial Cells (NOT SEEN) /HPF Urine Bacteria (0-FEW/HPF) /HPF Salicylates mg/dL Urine Opiates Screen (NEGATIVE) Ur Oxycodone Screen (NEGATIVE) Urine Methadone Screen (NEGATIVE) Acetaminophen ug/mL Ur Barbiturates Screen (NEGATIVE) U Tricyclic Antidepress (NEGATIVE) Ur Phencyclidine Scrn (NEGATIVE) Ur Amphetamine Screen (NEGATIVE) U Methamphetamines Scrn (NEGATIVE) Urine MDMA Screen (NEGATIVE) U Benzodiazepines Scrn (NEGATIVE) Urine Cocaine Screen (NEGATIVE) U Marijuana (THC) Screen (NEGATIVE) Ethyl Alcohol mg/dL Med Orders - Current: Current Medications Amlodipine Besylate (Norvasc) 10 mg PO DAILY REPLACED BY [facility] Last Admin: 09/09/19 11:21 Dose: 10 mg Dextrose/Water (Dextrose 50% In Water) 25 ml IVPUSH Q1H PRN PRN Reason: blood sugar <70 Folic Acid (Folic Acid) 1 mg PO BEDTIME REPLACED BY [facility] Heparin Sodium (Porcine) (Heparin Sodium) 5,000 units SUBCUT Q8HR REPLACED BY [facility] Last Admin: 09/09/19 06:05 Dose: Not Given Influenza Virus Vaccine (Pharmacy To Dose - Influenza Vaccine) 1 each IM ONETIME ONE Stop: 09/09/19 00:45 Insulin Human Lispro (Humalog) 0 unit SUBCUT ACBED REPLACED BY [facility]; Protocol Last Admin: 09/09/19 12:09 Dose: Not Given Lorazepam (Ativan) 0 mg IVPUSH TITRATE PRN; Protocol PRN Reason: Withdrawal Symptoms Lorazepam (Ativan) 0 mg PO Q1H PRN; Protocol PRN Reason: Withdrawal Symptoms Last Admin: 09/09/19 11:27 Dose: 1 mg Metoprolol Succinate (Toprol Xl) 100 mg PO DAILY REPLACED BY [facility] Last Admin: 09/09/19 11:22 Dose: 100 mg Multivitamins (Thera) 1 each PO BEDTIME REPLACED BY [facility] Ondansetron HCl (Zofran) 4 mg IVPUSH Q4H PRN PRN Reason: Nausea/Vomiting Potassium Chloride (Klor-Con 10) 40 meq PO Q6H REPLACED BY [facility] Stop: 09/09/19 16:46 Last Admin: 09/09/19 11:21 Dose: 40 meq Thiamine HCl (Vitamin B-1) 100 mg PO BEDTIME REPLACED BY [facility] Trazodone HCl (Trazodone) 100 mg PO BEDTIME PRN PRN Reason: Sleep Last Admin: 09/08/19 22:31 Dose: 100 mg Discontinued Medications Folic Acid (Folic Acid) 1 mg IV DAILY@1999 REPLACED BY [facility] Multivitamins/Minerals 10 ml/Folic Acid 1 mg/ Thiamine HCl 100 mg/ Lactated Ringer's 1,011.2 mls @ 999 mls/hr IV ONETIME ONE Stop: 09/08/19 18:39 Last Admin: 09/08/19 18:02 Dose: 999 mls/hr Sodium Chloride (Normal Saline) 1,000 mls @ 100 mls/hr IV ASDIRECTED REPLACED BY [facility] Influenza Virus Vaccine (Pharmacy To Dose - Influenza Vaccine) 1 each IM ONETIME ONE Stop: 09/09/19 00:01 Lorazepam (Ativan) 2 mg IVPUSH ONETIME ONE Stop: 09/08/19 18:15 Last Admin: 09/08/19 18:23 Dose: 2 mg Non-Formulary Medication (Trazodone) 100 mg PO BEDTIME PRN PRN Reason: Sleep Thiamine HCl (Vitamin B-1) 100 mg IV DAILY REPLACED BY [facility] Thiamine HCl (Vitamin B-1) 100 mg IV DAILY@1999 REPLACED BY [facility] - Exam General: Alert, Oriented Neck: Supple Lungs: Clear to Auscultation, Normal Respiratory Effort Cardiovascular: Regular Rate, Regular Rhythm GI/Abdominal Exam: Normal Bowel Sounds, Soft, Non-Tender Extremities: No Pedal Edema Neurological: Other (mild tremor) Sepsis Event Note - Evaluation Sepsis Screening Result: No Definite Risk - Focused Exam Vital Signs: Vital Signs Temp Pulse Pulse Resp BP BP Pulse Ox 09/09/19 11:40 37.2 C 81 20 158/104 H 100 09/09/19 11:22 80 121/78 09/09/19 11:21 121/78 09/09/19 08:00 37.7 C 80 18 121/78 98 09/09/19 03:00 36.8 C 79 16 111/67 98 Date Exam was Performed: 09/09/19 Time Exam was Performed: 12:53 - Problem List & Annotations (1) Alcohol abuse SNOMED Code(s): 36463167 Code(s): F10.10 - ALCOHOL ABUSE, UNCOMPLICATED Status: Acute Current Visit: No (2) Alcohol withdrawal SNOMED Code(s): 453673442 Code(s): F10.239 - ALCOHOL DEPENDENCE WITH WITHDRAWAL, UNSPECIFIED Status: Acute Current Visit: No Qualifiers: Complication of substance-induced condition: with unspecified complication Qualified Code(s): F10.239 - Alcohol dependence with withdrawal, unspecified (3) Hyperglycemia SNOMED Code(s): 61058518 Code(s): R73.9 - HYPERGLYCEMIA, UNSPECIFIED Status: Acute Current Visit: No - Problem List Review Problem List Initiated/Reviewed/Updated: Yes - My Orders Last 24 Hours: My Active Orders 09/08/19 19:51 Glucose [Blood Glucose Check, Bedside] [RC] QIDACANDBED LORazepam [Ativan] See Protocol IVPUSH TITRATE PRN LORazepam [Ativan] See Protocol PO Q1H PRN 09/08/19 19:54 Oxygen Therapy [RC] PRN Up With Assistance [RC] ASDIRECTED VTE/DVT Education [RC] PER UNIT ROUTINE Vital Signs [RC] Q4H Ondansetron [Zofran] 4 mg IVPUSH Q4H PRN Antiembolic Hose [OM.PC] Per Unit Routine Resuscitation Status Routine 09/08/19 19:55 Antiembolic Devices [RC] 09,21 09/08/19 20:02 traZODone 100 mg PO BEDTIME PRN 09/08/19 20:04 Dextrose 50% in Water 25 ml IVPUSH Q1H PRN 09/08/19 21:00 Insulin Lispro [HumaLOG] See Protocol SUBCUT ACBED 09/08/19 22:00 Heparin Sodium 5,000 units SUBCUT Q8HR 09/09/19 00:00 Influenza Vaccine Charge [RC] .DISCHARGE 09/09/19 00:44 Pharmacy to Dose - InFluenza V [Pharmacy to Dose - InFluenza Vaccine] 1 each IM ONETIME ONE 09/09/19 09:00 Metoprolol Succinate [Toprol XL] 100 mg PO DAILY amLODIPine [Norvasc] 10 mg PO DAILY 09/09/19 10:45 Potassium Chloride [Klor-Con 10] 40 meq PO Q6H 09/09/19 21:00 Folic Acid 1 mg PO BEDTIME Multivitamins,Therapeutic [Thera] 1 each PO BEDTIME Thiamine [Vitamin B-1] 100 mg PO BEDTIME 09/10/19 05:11 MAGNESIUM [CHEM] AM PHOSPHORUS [CHEM] AM 09/10/19 05:15 BASIC METABOLIC PANEL,BMP [CHEM] AM - Plan Plan:: 1. Acute alcohol withdrawal. improving stop IVF electrolyte replacement. Follow electrolytes in AM Frequent evaluations and titration of Ativan per the [facility] protocol 2. Chronic Alcohol addiction. Consult Social Work and evaluate for alcohol treatment programs. 3. Chronic alcohol use. Supplement thiamine, folate and multivitamin. switch to PO 4. Htn resume norvasc, metoprolol 5. hyperglycemia noted h/o glucose intolerance not on medications will follow BS use supplemental insulin as needed 6. Deep venous thrombosis (DVT) prophylaxis will be with subcutaneous heparin.
[2019-09-09] MEDS ORDERED: Folic Acid 50 MG/10 ML MDV IV SCH (20:00)
[2019-09-09] MEDS ORDERED: Thiamine 100 MG Tab PO SCH (21:00)
[2019-09-09] MEDS ORDERED: Folic Acid 1 MG Tab PO SCH (21:00)
[2019-09-09] MEDS ORDERED: Multivitamins,Therapeutic Tab PO SCH (21:00)
[2019-09-09] MEDS: traZODone 50 MG Tab PO PRN (21:41)
[2019-09-10] MEDS: Heparin Sodium 5,000 Units/ML Vial SUBCUT SCH (05:09)
[2019-09-10 06:51] LABS: ANION GAP 13.1
[2019-09-10 08:11] VITALS: BP 127/86; PULSE 84
[2019-09-10] MEDS: Insulin Lispro 100 Units/ML 3 ML Vial SUBCUT SCH (08:46)
[2019-09-10] MEDS: amLODIPine 5 MG Tab PO SCH (09:14)
[2019-09-10] MEDS: Metoprolol Succinate 50 MG Tab.ER PO SCH (09:15)
--- NOTE | 2019-09-10 09:58 | PCM.DCSUM1 ---
Discharge Summary - Hospital Course Free Text/Narrative:: 1. Acute alcohol withdrawal. resolved no tremor chronic anxiety resume trazodone 2. Chronic Alcohol addiction. will be discharged to residential alcohol treatment programs. 3. Chronic alcohol use. Supplement thiamine, folate and multivitamin. 4. Htn resume norvasc, metoprolol 5. hyperglycemia noted h/o glucose intolerance follow up with pmd periodically Diagnosis: Stroke: No - Discharge Data Discharge Date: 09/10/19 Discharge Disposition: Home, Self-Care 01 Condition: Good - Referral to Home Health Primary Care Physician: PCP Unobtainable - Discharge Diagnosis/Problem(s) (1) Alcohol abuse SNOMED Code(s): 01869770 ICD Code: F10.10 - ALCOHOL ABUSE, UNCOMPLICATED Status: Acute Current Visit: No (2) Alcohol withdrawal SNOMED Code(s): 042022375 ICD Code: F10.239 - ALCOHOL DEPENDENCE WITH WITHDRAWAL, UNSPECIFIED Status : Acute Current Visit: No Qualifiers: Complication of substance-induced condition: with unspecified complication Qualified Code(s): F10.239 - Alcohol dependence with withdrawal, unspecified (3) Hyperglycemia SNOMED Code(s): 56968808 ICD Code: R73.9 - HYPERGLYCEMIA, UNSPECIFIED Status: Acute Current Visit : No - Patient Instructions Diet: Heart Healthy Diet, Diabetic Diet Activity: As Tolerated - Discharge Plan *PRESCRIPTION DRUG MONITORING PROGRAM REVIEWED*: Not Applicable *COPY OF PRESCRIPTION DRUG MONITORING REPORT IN PATIENT ALINA: Not Applicable Prescriptions/Med Rec: Folic Acid 1 mg PO BEDTIME 14 Days #14 tablet Thiamine [Vitamin B-1] 100 mg PO BEDTIME #14 tablet traZODone HCl [Trazodone HCl] 100 mg PO .NIGHTLY 30 Days #30 tablet Home Medications: Home Meds Metoprolol Succinate [Toprol XL] 100 mg PO DAILY 01/26/15 [History] Multivitamin [One Daily Multivitamin] 1 tab PO DAILY 01/26/15 [History] amLODIPine [Norvasc] 10 mg PO DAILY 01/26/15 [History] Folic Acid 1 mg PO BEDTIME 14 Days #14 tablet 09/10/19 [Rx] Thiamine [Vitamin B-1] 100 mg PO BEDTIME #14 tablet 09/10/19 [Rx] traZODone HCl [Trazodone HCl] 100 mg PO .NIGHTLY 30 Days #30 tablet 09/10/19 [Rx ] Referrals: Provider,Unknown [Ordering Only Provider] - (PMD in [place] or establish new in [place] in 2-3 days) - Discharge Summary/Plan Comment DC Time >30 min.: No - General Info Date of Service: 09/10/19 Admission Dx/Problem (Free Text: Admission Diagnosis/Problem Admission Diagnosis/Problem Alcohol withdrawal syndrome Subjective Update: feeling better mod anxiety would like to smoke no sob, no cp - Review of Systems General: Denies: Fever, Weakness Pulmonary: Denies: Shortness of Breath Cardiovascular: Denies: Chest Pain Gastrointestinal: Denies: Abdominal Pain - Patient Data Vitals - Most Recent: Last Vital Signs Temp 36.9 C 09/10/19 08:00 Pulse 84 09/10/19 09:15 Resp 18 09/10/19 08:00 BP 127/86 09/10/19 09:15 Pulse Ox 99 09/10/19 08:00 Weight - Most Recent: 51.437 kg I&O - Last 24 hours: Intake & Output 09/09/19 09/10/19 09/10/19 22:59 06:59 14:59 Intake Total 600 Balance 600 Lab Results - Last 24 hrs: Laboratory Results - last 24 hr 09/09/19 09/09/19 09/09/19 Range/Units 11:48 16:49 20:21 Sodium (135-145) mmol/L Potassium (3.6-5.0) mmol/L Chloride (101-111) mmol/L Carbon Dioxide (21.0-31.0) mmol/L Anion Gap BUN (7-18) mg/dL Creatinine (0.6-1.3) mg/dL Est Cr Clr Drug Dosing mL/min Estimated GFR (MDRD) Glucose (74-105) mg/dL POC Glucose 148 H 114 H 175 H (70-105) mg/dl Calcium (8.4-10.2) mg/dl Phosphorus (2.5-4.6) mg/dL Magnesium (1.8-2.5) mg/dL 09/10/19 09/10/19 Range/Units 05:50 07:41 Sodium 137 (135-145) mmol/L Potassium 4.1 (3.6-5.0) mmol/L Chloride 107 (101-111) mmol/L Carbon Dioxide 21.0 (21.0-31.0) mmol/L Anion Gap 13.1 BUN 15 (7-18) mg/dL Creatinine 1.0 (0.6-1.3) mg/dL Est Cr Clr Drug Dosing 49.19 mL/min Estimated GFR (MDRD) 57 Glucose 144 H (74-105) mg/dL POC Glucose 132 H (70-105) mg/dl Calcium 9.3 (8.4-10.2) mg/dl Phosphorus 3.6 (2.5-4.6) mg/dL Magnesium 1.4 L (1.8-2.5) mg/dL Med Orders - Current: Current Medications Amlodipine Besylate (Norvasc) 10 mg PO DAILY [facility] Last Admin: 09/10/19 09:14 Dose: 10 mg Dextrose/Water (Dextrose 50% In Water) 25 ml IVPUSH Q1H PRN PRN Reason: blood sugar <70 Folic Acid (Folic Acid) 1 mg PO BEDTIME [facility] Last Admin: 09/09/19 21:41 Dose: 1 mg Heparin Sodium (Porcine) (Heparin Sodium) 5,000 units SUBCUT Q8HR [facility] Last Admin: 09/10/19 05:09 Dose: Not Given Influenza Virus Vaccine (Pharmacy To Dose - Influenza Vaccine) 1 each IM ONETIME ONE Stop: 09/09/19 00:45 Insulin Human Lispro (Humalog) 0 unit SUBCUT ACBED [facility]; Protocol Last Admin: 09/10/19 08:46 Dose: Not Given Lorazepam (Ativan) 0 mg IVPUSH TITRATE PRN; Protocol PRN Reason: Withdrawal Symptoms Lorazepam (Ativan) 0 mg PO Q1H PRN; Protocol PRN Reason: Withdrawal Symptoms Last Admin: 09/09/19 21:42 Dose: 1 mg Magnesium Oxide (Magnesium Oxide) 500 mg PO .ONCE [facility] Metoprolol Succinate (Toprol Xl) 100 mg PO DAILY [facility] Last Admin: 09/10/19 09:15 Dose: 100 mg Multivitamins (Thera) 1 each PO BEDTIME [facility] Last Admin: 09/09/19 21:41 Dose: 1 each Ondansetron HCl (Zofran) 4 mg IVPUSH Q4H PRN PRN Reason: Nausea/Vomiting Thiamine HCl (Vitamin B-1) 100 mg PO BEDTIME [facility] Last Admin: 09/09/19 21:41 Dose: 100 mg Trazodone HCl (Trazodone) 100 mg PO BEDTIME PRN PRN Reason: Sleep Last Admin: 09/09/19 21:41 Dose: 100 mg Discontinued Medications Folic Acid (Folic Acid) 1 mg IV DAILY@1999 [facility] Multivitamins/Minerals 10 ml/Folic Acid 1 mg/ Thiamine HCl 100 mg/ Lactated Ringer's 1,011.2 mls @ 999 mls/hr IV ONETIME ONE Stop: 09/08/19 18:39 Last Admin: 09/08/19 18:02 Dose: 999 mls/hr Sodium Chloride (Normal Saline) 1,000 mls @ 100 mls/hr IV ASDIRECTED [facility] Influenza Virus Vaccine (Pharmacy To Dose - Influenza Vaccine) 1 each IM ONETIME ONE Stop: 09/09/19 00:01 Lorazepam (Ativan) 2 mg IVPUSH ONETIME ONE Stop: 09/08/19 18:15 Last Admin: 09/08/19 18:23 Dose: 2 mg Non-Formulary Medication (Trazodone) 100 mg PO BEDTIME PRN PRN Reason: Sleep Potassium Chloride (Klor-Con 10) 40 meq PO Q6H [facility] Stop: 09/09/19 16:46 Last Admin: 09/09/19 18:00 Dose: 40 meq Thiamine HCl (Vitamin B-1) 100 mg IV DAILY [facility] Thiamine HCl (Vitamin B-1) 100 mg IV DAILY@1999 [facility] - Exam General: Reports: Alert, Oriented Neck: Reports: Supple Lungs: Reports: Clear to Auscultation, Normal Respiratory Effort Cardiovascular: Reports: Regular Rate, Regular Rhythm GI/Abdominal Exam: Normal Bowel Sounds, Soft, Non-Tender Extremities: No Pedal Edema Skin: Reports: Warm Neurological: Reports: Other (no tremor) Psy/Mental Status: Reports: Alert, Anxious
[2019-09-10] MEDS ORDERED: CEL IM ONE (10:07)
[2019-09-10] MEDS ORDERED: FLU VAC QS IM ONE (10:07)
== END 2019-09-10 10:35 | disposition home or self-care (01) ==
LOC: DL.ED 16:27 → DL.MS 19:27
PROVIDERS: ADMIT Internal Medicine; ATTEND Internal Medicine
DX: F10.239 Alcohol dependence with withdrawal, unspecified (principal); E10.65 Type 1 diabetes mellitus with hyperglycemia; I10 Essential (primary) hypertension; K21.9 Gastro-esophageal reflux disease without esophagitis; F41.9 Anxiety disorder, unspecified; F32.9 Major depressive disorder, single episode, unspecified; M19.90 Unspecified osteoarthritis, unspecified site; F17.210 Nicotine dependence, cigarettes, uncomplicated; Z79.899 Other long term (current) drug therapy; Z88.8 Allergy status to other drugs, medicaments and biological substances; Z23 Encounter for immunization
CPT/HCPCS: 36415; 80048; 80053; 80305; 80320; 80329; 81001; 82962; 83735; 84100; 85025; 90471; 90686; A9270; J1644; J1815; J2060; J3411; J7120; G0008; G0480; J3490

== ENCOUNTER 2020-05-29 14:47 | Emergency (ER) | payer MEDICAID ==
[2020-05-29] MEDS ORDERED: Lactated Ringers 1,000 ML IV ONE (15:09)
[2020-05-29] MEDS ORDERED: Sodium Chloride 0.9% 10 ML Syringe FLUSH PRN (15:09)
[2020-05-29 15:10] VITALS: BP 146/88; PULSE 116
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
[2020-05-29 15:45] LABS: BASE EXCESS VENOUS 2.5 mmol/l ((-2)-(+3)); BICARBONATE,VENOUS 24 mmol/l (19-25); O2 DELIVERY DEVICE ROOM AIR; O2 SATURATION VENOUS 98.1 % (60-80); PCO2 VENOUS 28 mmHg (41-51); PH,VENOUS 7.54 (7.31-7.41); PO2 VENOUS 141 mmHg (35-42)
[2020-05-29 16:09] LABS: ANION GAP 12.6 mEq/L (7-13); CHLORIDE,CL 96 mmol/L (98-107); SODIUM,NA 132 mmol/L (136-145)
[2020-05-29] MEDS ORDERED: Insulin Regular, Human 100 Units/ML 3 ML Vial IV ONE (16:18)
[2020-05-29] MEDS ORDERED: Insulin Regular, Human 100 Units/ML 3 ML Vial SUBCUT ONE (16:36)
[2020-05-29] MEDS ORDERED: metFORMIN 500 MG Tab PO ONE (16:36)
== END 2020-05-29 17:20 | disposition home or self-care (01) ==
LOC: DL.ED 14:47
DX: E13.65 Other specified diabetes mellitus with hyperglycemia (principal); I10 Essential (primary) hypertension; K21.9 Gastro-esophageal reflux disease without esophagitis; F32.9 Major depressive disorder, single episode, unspecified; F41.0 Panic disorder [episodic paroxysmal anxiety]; F17.210 Nicotine dependence, cigarettes, uncomplicated; Z90.89 Acquired absence of other organs; Z88.8 Allergy status to other drugs, medicaments and biological substances; Z79.899 Other long term (current) drug therapy; Z90.710 Acquired absence of both cervix and uterus
CPT/HCPCS: 36415; 80053; 80305; 80307; 81001; 82009; 82803; 82962; 83525; 83605; 83690; 85025; 96360; 99284; A9270; J1815; J7120; 99283

== ENCOUNTER 2020-06-20 09:14 | Emergency (ER) | payer MEDICAID ==
[2020-06-20 09:37] VITALS: BP 126/69; PULSE 73
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
--- NOTE | 2020-06-20 09:58 | CR ---
PROCEDURE INFORMATION: Exam: XR Left Hand Exam date and time: 06/20/2020 9:37 AM Age: 59 years old Clinical indication: Pain; Hand and wrist; Left; Additional info: Fall with arm extended TECHNIQUE: Imaging protocol: XR Left hand. Views: 3 or more views. COMPARISON: No relevant prior studies available. FINDINGS: Bones/joints: All bones are intact and normally aligned. Slight diffuse interphalangeal degenerative spurring but no osseous erosion or periosteal thickening. Soft tissues: Normal. IMPRESSION: 1. Negative for fracture or malalignment. 2. Mild distal interphalangeal osteoarthrosis.
--- NOTE | 2020-06-20 09:59 | CR ---
PROCEDURE INFORMATION: Exam: XR Left Wrist Exam date and time: 06/20/2020 9:39 AM Age: 59 years old Clinical indication: Pain; Hand and wrist; Left; Additional info: Fall with arm extended TECHNIQUE: Imaging protocol: XR Left wrist. Views: 3 or more views. COMPARISON: No relevant prior studies available. FINDINGS: Bones/joints: Normal mineralization and alignment. No fracture, degenerative spur, osseous erosion, joint effusion, joint body or other deformity. Soft tissues: Normal. IMPRESSION: Normal.
== END 2020-06-20 10:20 | disposition home or self-care (01) ==
LOC: DL.ED 09:14
DX: M25.532 Pain in left wrist (principal); I10 Essential (primary) hypertension; F41.9 Anxiety disorder, unspecified; F32.9 Major depressive disorder, single episode, unspecified; E10.9 Type 1 diabetes mellitus without complications; Z88.8 Allergy status to other drugs, medicaments and biological substances; Z79.899 Other long term (current) drug therapy; W01.0XXA Fall on same level from slipping, tripping and stumbling without subsequent striking against object, initial encounter
CPT/HCPCS: 73110-LT; 73130-LT; 99282; 99283

== ENCOUNTER 2021-03-06 08:30 | Emergency (ER) | payer MEDICAID ==
[2021-03-06 08:44] VITALS: BP 140/75; PULSE 89
[2021-03-06] MEDS ORDERED: Orphenadrine 60 MG/2 ML Inj IM ONE (09:01)
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
--- NOTE | 2021-03-06 09:36 | CR ---
PROCEDURE INFORMATION: Exam: XR Left Ribs with PA Chest Exam date and time: 03/06/2021 9:22 AM Age: 60 years old Clinical indication: Other: Posterior left mid rib injury TECHNIQUE: Imaging protocol: XR Left ribs with PA chest. Views: 3 views COMPARISON: No relevant prior exams. FINDINGS: Lungs: Unremarkable. No consolidation. Pleural spaces: Unremarkable. No pleural effusion. No pneumothorax. Heart/Mediastinum: Unremarkable. No cardiomegaly. Bones/joints: Unremarkable. IMPRESSION: No acute findings.
== END 2021-03-06 09:52 | disposition home or self-care (01) ==
LOC: DL.ED 08:30
DX: R07.89 Other chest pain (principal); E10.9 Type 1 diabetes mellitus without complications; I10 Essential (primary) hypertension; Z88.6 Allergy status to analgesic agent; Z72.0 Tobacco use; W18.39XA Other fall on same level, initial encounter
CPT/HCPCS: 71101; 96372; 99283; J2360

== ENCOUNTER 2021-12-29 15:47 | Emergency (ER) | payer MEDICAID ==
[2021-12-29] MEDS ORDERED: Ondansetron 4 MG Tab.DIS PO ONE (15:48)
[2021-12-29] MEDS ORDERED: Ondansetron 4 MG/2 ML SDV IV ONE (16:03)
[2021-12-29] MEDS ORDERED: MVI, Adult with Vitamin K 10 ML, Thiamine 100 MG, Folic Acid 1 MG in Lactated Ringers 1... IV ONE ×4 (16:03)
[2021-12-29] MEDS ORDERED: HYDROmorphone 0.5 MG/0.5 ML Syringe IVPUSH ONE (16:03)
[2021-12-29] MEDS ORDERED: Sodium Chloride 0.9% 10 ML Syringe FLUSH PRN (16:04)
[2021-12-29 16:11] VITALS: BP 165/85; PULSE 77
[2021-12-29 16:22] LABS: ANION GAP 23.4 mEq/L (7-13); CHLORIDE,CL 95 mmol/L (98-107); SODIUM,NA 137 mmol/L (136-145)
[2021-12-29 17:13] LABS: AMPHETAMINES,URINE NEGATIVE (NEGATIVE); BARBITURATES,URINE NEGATIVE (NEGATIVE); BENZODIAZEPINE,URINE NEGATIVE (NEGATIVE); MDMA (ECSTASY), URINE NEGATIVE (NEGATIVE); METHADONE,URINE NEGATIVE (NEGATIVE); METHAMPHETAMINES,URINE NEGATIVE (NEGATIVE); OPIATES,URINE NEGATIVE (NEGATIVE); OXYCODONE,URINE NEGATIVE (NEGATIVE); PHENCYCLIDINE,URINE NEGATIVE (NEGATIVE); TCA,URINE NEGATIVE (NEGATIVE)
[2021-12-29] MEDS ORDERED: Famotidine 20 MG/2 ML SDV IVPUSH ONE (17:42)
[2021-12-29] MEDS ORDERED: Ondansetron 4 MG Tab.DIS ONE (18:03)
== END 2021-12-29 18:15 | disposition home or self-care (01) ==
LOC: DL.ED 15:47
DX: K29.20 Alcoholic gastritis without bleeding (principal); F10.10 Alcohol abuse, uncomplicated; E10.9 Type 1 diabetes mellitus without complications; I10 Essential (primary) hypertension; M19.90 Unspecified osteoarthritis, unspecified site; Z88.8 Allergy status to other drugs, medicaments and biological substances; Y90.0 Blood alcohol level of less than 20 mg/100 ml
CPT/HCPCS: 36415; 80053; 80305; 80307; 81001; 82009; 82150; 82947; 83690; 84484; 85025; 85610; 85730; 93005; 93010; 96365; 96375; 99284; A9270; J1170; J2405; J3411; J3490; J7120

== ENCOUNTER 2021-12-31 13:44 | Inpatient (IN) | payer MEDICAID ==
[2021-12-31] MEDS ORDERED: Dextrose 5%-0.45% NaCl 1,000 ML IV SCH (14:00)
[2021-12-31 14:54] LABS: CORONAVIRUS COVID-19 NAA NEGATIVE (NEGATIVE); RESPIRATORY SYNCYTIAL VIR NAA NEGATIVE (NEGATIVE)
[2021-12-31 15:03] LABS: PTT,PARTIAL THROMBOPLSTIN TIME 22.5 SEC (22.0-34.0)
[2021-12-31 15:09] LABS: ANION GAP 13.7 mEq/L (7-13); CHLORIDE,CL 96 mmol/L (98-107); SODIUM,NA 136 mmol/L (136-145)
[2021-12-31] MEDS: 50% Dextrose in Water 50 ML Syringe ONE ×2 (15:14→16:43)
[2021-12-31] MEDS ORDERED: 50% Dextrose in Water 50 ML Syringe IVPUSH ONE ×4 (15:16→19:47)
[2021-12-31] MEDS ORDERED: 50% Dextrose in Water 50 ML Syringe ONE ×3 (16:12→19:58)
[2021-12-31] MEDS ORDERED: cloNIDine 0.1 MG Tab PO PRN (16:48)
[2021-12-31] MEDS ORDERED: Albuterol/Ipratropium 3.0-0.5 MG/3 ML Neb Soln NEB PRN (16:48)
[2021-12-31] MEDS ORDERED: Polyethylene Glycol 3350 Powder 17 GM Packet PO PRN (16:48)
[2021-12-31] MEDS ORDERED: HYDROmorphone 0.5 MG/0.5 ML Syringe IVPUSH PRN (16:48)
[2021-12-31] MEDS ORDERED: Bisacodyl 5 MG Tab PO PRN (16:48)
[2021-12-31] MEDS ORDERED: Docusate Sodium 100 MG Cap PO PRN (16:48)
[2021-12-31] MEDS ORDERED: Haloperidol Lactate 5 MG/ML SDV IM PRN (16:48)
[2021-12-31] MEDS ORDERED: Ketorolac 30 MG/ML SDV IVPUSH PRN (16:48)
[2021-12-31] MEDS ORDERED: Acetaminophen 325 MG Tab PO PRN (16:48)
[2021-12-31] MEDS ORDERED: Magnesium Hydroxide 400 MG/5 ML Susp 30 ML Cup PO PRN (16:48)
[2021-12-31] MEDS ORDERED: Potassium Chloride 10 MEQ Tab.ER PO ONE ×3 (17:28→23:00)
[2021-12-31] MEDS ORDERED: hydrALAZINE 20 MG/ML SDV IVPUSH PRN (17:28)
[2021-12-31] MEDS ORDERED: Metoprolol Tartrate 5 MG/5 ML SDV IVPUSH PRN (17:28)
[2021-12-31] MEDS ORDERED: Acetaminophen/Butalbital/Caffeine 325-50-40 MG Tab PO PRN (17:28)
[2021-12-31] MEDS: Ondansetron 4 MG/2 ML SDV IVPUSH PRN ×2 (17:51→23:24)
[2021-12-31] MEDS ORDERED: Dextrose 10% in Water 500 ML IV ONE ×2 (17:57→20:06)
[2021-12-31] MEDS ORDERED: Dextrose 5%-0.9% NaCl with KCl 1,000 ML IV SCH (19:00)
[2021-12-31 21:40] LABS: AMPHETAMINES,URINE NEGATIVE (NEGATIVE); BARBITURATES,URINE NEGATIVE (NEGATIVE); BENZODIAZEPINE,URINE NEGATIVE (NEGATIVE); MDMA (ECSTASY), URINE NEGATIVE (NEGATIVE); METHADONE,URINE NEGATIVE (NEGATIVE); METHAMPHETAMINES,URINE NEGATIVE (NEGATIVE); OPIATES,URINE NEGATIVE (NEGATIVE); OXYCODONE,URINE NEGATIVE (NEGATIVE); PHENCYCLIDINE,URINE NEGATIVE (NEGATIVE); TCA,URINE NEGATIVE (NEGATIVE)
[2021-12-31] MEDS ORDERED: Glucagon,Human Recombinant 1 MG Vial IVPUSH ONE ×2 (22:43→23:44)
[2021-12-31] MEDS ORDERED: Lactated Ringers 500 ML IV SCH (22:45)
[2021-12-31] MEDS: Dextrose 10% in Water 500 ML IV SCH (23:06)
[2021-12-31] MEDS ORDERED: diphenhydrAMINE 50 MG/ML SDV IVPUSH ONE (23:22)
[2021-12-31 23:25] LABS: ANION GAP 9.1 mEq/L (7-13)
[2021-12-31] MEDS ORDERED: Potassium Chloride 10 MEQ in Premix Bag 1 BAG IV SCH (23:45)
[2021-12-31] MEDS ORDERED: Magnesium Sulfate/Water 4 GM in Premix Bag 1 BAG IV ONE (23:51)
[2022-01-01] MEDS: Potassium Chloride 10 MEQ in Premix Bag 1 BAG IV SCH ×6 (01:00→06:43)
[2022-01-01] MEDS: Magnesium Sulfate/Water 2 GM in Premix Bag 1 BAG IV SCH ×2 (01:03→02:05)
[2022-01-01] MEDS: Dextrose 10% in Water 500 ML IV SCH ×7 (01:15→14:25)
[2022-01-01] MEDS: Pantoprazole 40 MG Vial IVPUSH SCH (06:38)
[2022-01-01] MEDS ORDERED: Glucagon,Human Recombinant 1 MG Vial IVPUSH ONE (08:00)
[2022-01-01] MEDS ORDERED: Flumazenil 0.1 MG/ML 5 ML MDV IVPUSH PRN (08:11)
[2022-01-01] MEDS ORDERED: LORazepam 2 MG/ML SDV IVPUSH PRN (08:11)
[2022-01-01] MEDS: Ondansetron 4 MG/2 ML SDV IVPUSH PRN (08:12)
[2022-01-01 08:36] LABS: ANION GAP 12.1 mEq/L (7-13)
[2022-01-01] MEDS: LORazepam 2 MG/ML SDV IVPUSH PRN (08:46)
[2022-01-01] MEDS: amLODIPine 5 MG Tab PO SCH (08:49)
[2022-01-01] MEDS: Multivitamin Tab PO SCH (08:49)
[2022-01-01] MEDS: Folic Acid 1 MG Tab PO SCH (08:49)
[2022-01-01] MEDS: Thiamine 100 MG Tab PO SCH (08:49)
[2022-01-01] MEDS ORDERED: Indomethacin 25 MG Cap PO ONE (09:29)
[2022-01-01] MEDS: Nicotine 21 MG/24 Hr Patch TRDERM SCH (09:29)
[2022-01-01] MEDS: Indomethacin 25 MG Cap PO SCH (17:16)
[2022-01-01] MEDS: Colchicine 0.6 MG Tab PO SCH (17:16)
[2022-01-01] MEDS ORDERED: Glucagon,Human Recombinant 1 MG Vial IM PRN (19:42)
[2022-01-01] MEDS ORDERED: Aspirin 325 MG Tab PO SCH (21:00)
[2022-01-01] MEDS: Insulin Lispro 100 Units/ML 3 ML Vial SUBCUT SCH (21:31)
[2022-01-02] MEDS: Insulin Lispro 100 Units/ML 3 ML Vial SUBCUT SCH ×8 (01:01→21:57)
[2022-01-02] MEDS: Pantoprazole 40 MG Vial IVPUSH SCH (06:02)
[2022-01-02 08:15] LABS: ANION GAP 13.3 mEq/L (7-13)
[2022-01-02] MEDS: Indomethacin 25 MG Cap PO SCH ×2 (09:11→17:50)
[2022-01-02] MEDS: Colchicine 0.6 MG Tab PO SCH (09:12)
[2022-01-02] MEDS: amLODIPine 5 MG Tab PO SCH (09:12)
[2022-01-02] MEDS: Aspirin 325 MG Tab PO SCH (09:12)
[2022-01-02] MEDS: Nicotine 21 MG/24 Hr Patch TRDERM SCH (09:15)
[2022-01-02] MEDS: Folic Acid 1 MG Tab PO SCH (09:16)
[2022-01-02] MEDS: Multivitamin Tab PO SCH (09:16)
[2022-01-02] MEDS: Thiamine 100 MG Tab PO SCH (09:16)
[2022-01-02] MEDS: LORazepam 2 MG/ML SDV IVPUSH PRN (21:23)
[2022-01-02] MEDS: Ondansetron 4 MG/2 ML SDV IVPUSH PRN (21:32)
[2022-01-03] MEDS: Insulin Lispro 100 Units/ML 3 ML Vial SUBCUT SCH ×5 (00:15→12:33)
[2022-01-03] MEDS: Pantoprazole 40 MG Vial IVPUSH SCH (05:09)
[2022-01-03 06:27] LABS: ANION GAP 15.3 mEq/L (7-13)
[2022-01-03] MEDS: Thiamine 100 MG Tab PO SCH (09:01)
[2022-01-03] MEDS: Folic Acid 1 MG Tab PO SCH (09:01)
[2022-01-03] MEDS: Aspirin 325 MG Tab PO SCH (09:01)
[2022-01-03] MEDS: amLODIPine 5 MG Tab PO SCH (09:02)
[2022-01-03] MEDS: Colchicine 0.6 MG Tab PO SCH (09:02)
[2022-01-03] MEDS: Indomethacin 25 MG Cap PO SCH (09:02)
[2022-01-03] MEDS: Multivitamin Tab PO SCH (09:02)
[2022-01-03] MEDS: Nicotine 21 MG/24 Hr Patch TRDERM SCH (09:03)
[2022-01-03] MEDS: LORazepam 2 MG/ML SDV IVPUSH PRN (09:13)
[2022-01-03] MEDS ORDERED: Magnesium Sulfate/Water 2 GM in Premix Bag 1 BAG IV ONE (10:00)
[2022-01-03] MEDS ORDERED: Insulin Glarg,Human.Rec.Analog 100 Unit/ML SUBCUT ONE (12:45)
[2022-01-03 12:49] VITALS: BP 156/90; PULSE 98
== END 2022-01-03 13:41 | disposition other institution (70) | DRG 917 ==
LOC: DL.ED 13:44 → DL.MS 16:19
PROVIDERS: ADMIT Internal Medicine; ATTEND Internal Medicine
DX: T38.3X2A Poisoning by insulin and oral hypoglycemic [antidiabetic] drugs, intentional self-harm, initial encounter (principal); I21.A1 Myocardial infarction type 2; N17.9 Acute kidney failure, unspecified; E87.2 Acidosis; R65.10 Systemic inflammatory response syndrome (SIRS) of non-infectious origin without acute organ dysfunction; I30.9 Acute pericarditis, unspecified; Z20.822 Contact with and (suspected) exposure to COVID-19; E11.649 Type 2 diabetes mellitus with hypoglycemia without coma; F10.20 Alcohol dependence, uncomplicated; K21.9 Gastro-esophageal reflux disease without esophagitis; F41.0 Panic disorder [episodic paroxysmal anxiety]; F32.A Depression, unspecified; F17.200 Nicotine dependence, unspecified, uncomplicated; E83.42 Hypomagnesemia; E88.09 Other disorders of plasma-protein metabolism, not elsewhere classified; E87.5 Hyperkalemia; E87.8 Other disorders of electrolyte and fluid balance, not elsewhere classified; Z88.8 Allergy status to other drugs, medicaments and biological substances; Z79.82 Long term (current) use of aspirin; Z79.899 Other long term (current) drug therapy; Z90.49 Acquired absence of other specified parts of digestive tract; Z90.710 Acquired absence of both cervix and uterus
CPT/HCPCS: 0241U; 36415; 71045; 80048; 80053; 80305-QW; 80307; 81001; 82150; 82947; 83605; 83690; 83735; 83880; 84484; 85025; 85610; 85651; 85730; 86140; 87040; 93005; 93010; 94640; 96374; 96376; 99284; 99285-25; A9270-GY; C9113; J1200; J1610; J1815-GY; J1885; J2060; J2405; J3475; J3480; J3490; J7042; J7606

== ENCOUNTER 2022-12-20 08:17 | Emergency (ER) | payer MEDICAID ==
[2022-12-20] MEDS ORDERED: methylPREDNISolone Sodium Succinate 125 MG/2 ML SDV IVPUSH ONE (08:28)
[2022-12-20 08:29] VITALS: BP 162/84; PULSE 86
[2022-12-20] MEDS ORDERED: Famotidine 20 MG/2 ML SDV IVPUSH ONE (08:30)
[2022-12-20] MEDS ORDERED: Famotidine 20 MG Tab PO ONE (08:57)
[2022-12-20] MEDS ORDERED: methylPREDNISolone Sodium Succinate 125 MG/2 ML SDV IM ONE (08:57)
== END 2022-12-20 09:13 | disposition home or self-care (01) ==
LOC: DL.ED 08:17
DX: T78.40XA Allergy, unspecified, initial encounter (principal); I10 Essential (primary) hypertension; E10.9 Type 1 diabetes mellitus without complications; Z88.8 Allergy status to other drugs, medicaments and biological substances; Z79.82 Long term (current) use of aspirin; Z79.899 Other long term (current) drug therapy
CPT/HCPCS: 96372; 99282; 99283; A9270-GY; J2930

== ENCOUNTER 2023-07-20 20:20 | Emergency (ER) | payer SELFPAY ==
[2023-07-20 23:11] VITALS: BP 172/85; PULSE 73
[2023-07-20] MEDS ORDERED: Sodium Chloride 0.9% 10 ML Syringe FLUSH PRN (23:24)
[2023-07-20] MEDS ORDERED: Ondansetron 4 MG/2 ML SDV IVPUSH ONE (23:25)
[2023-07-20] MEDS ORDERED: Sodium Chloride 0.9% 1,000 ML IV ONE (23:25)
[2023-07-20] MEDS ORDERED: fentaNYL 100 MCG/2 ML SDV IVPUSH ONE (23:26)
[2023-07-20 23:41] LABS: BASOPHILS PERCENT AUTO 0.2 % (0.0-1.0); EOSINOPHILS PERCENT AUTO 0.1 % (1.0-3.0); HEMATOCRIT 46.9 % (37.0-47.0); HEMOGLOBIN 16.1 g/dL (12.0-16.0); LYMPHOCYTES PERCENT AUTO 12.3 % (20.5-50.1); MEAN CORPUSCULAR HEMOGLOBIN 30.9 pg (27.0-34.0); MEAN CORPUSCULAR HGB CONC 34.3 g/dL (33.0-35.0); MONOCYTES PERCENT AUTO 10.5 % (2-8); NEUTROPHILS PERCENT AUTO 76.9 % (42.2-75.2); PLATELET COUNT,PLT 219 10^3/uL (150-450); RED BLOOD CELL COUNT 5.21 10^6/uL (4.2-5.4); WHITE BLOOD CELL COUNT,WBC 12.8 10^3/uL (5.0-10.0)
[2023-07-20 23:59] LABS: A/G RATIO 1.2; ALANINE AMINOTRANSFERASE,ALT 26 U/L (14-59); ALBUMIN 4.5 g/dL (3.4-5.0); ALKALINE PHOSPHATASE 101 U/L (46-116); ANION GAP 12.2 mEq/L (7-13); ASPARTATE AMNIOTRANSFERASE,AST 20 U/L (15-37); BILIRUBIN TOTAL 0.6 mg/dL (0.2-1.0); BLOOD UREA NITROGEN,BUN 31 mg/dL (7-18); BUN/CREATININE RATIO 19.6 (No establ ref range); CALCIUM 9.9 mg/dL (8.5-10.1); CARBON DIOXIDE,CO2 32 mmol/L (21-32); CHLORIDE,CL 91 mmol/L (98-107); CREATININE 1.58 mg/dL (0.55-1.02); EST CRCL DRUG DOSING (CG) 30.53 mL/min; GLUCOSE RANDOM 211 mg/dL (70-99); LIPASE 7 U/L (16-77); POTASSIUM,K 3.2 mmol/L (3.5-5.1); PROTEIN TOTAL,TP 8.2 g/dL (6.4-8.2); SODIUM,NA 132 mmol/L (136-145)
[2023-07-21] LABS: ESTIMATED GFR 37 mL/min (>=60); ETHANOL BLOOD MEDICAL < 3 mg/dL (0)
[2023-07-21] MEDS ORDERED: Iopamidol 612 MG/ML 100 ML Bottle IVPUSH ONE (01:49)
[2023-07-21] MEDS ORDERED: Ondansetron 4 MG/2 ML SDV IVPUSH ONE (01:50)
[2023-07-21] MEDS ORDERED: fentaNYL 100 MCG/2 ML SDV IVPUSH ONE (03:12)
== END 2023-07-21 05:19 | disposition home or self-care (01) ==
LOC: DL.ED 20:20
DX: K52.9 Noninfective gastroenteritis and colitis, unspecified (principal); I10 Essential (primary) hypertension; K21.9 Gastro-esophageal reflux disease without esophagitis; E10.9 Type 1 diabetes mellitus without complications; Z79.82 Long term (current) use of aspirin; Z79.899 Other long term (current) drug therapy; Z79.84 Long term (current) use of oral hypoglycemic drugs; Z88.5 Allergy status to narcotic agent; Z79.4 Long term (current) use of insulin
CPT/HCPCS: 36415; 74177; 80053; 80307; 83690; 85025; 96361; 96374; 96375; 96376; 99284; J2405; J3010; J7030; Q9967; J3490

== ENCOUNTER 2025-03-27 06:50 | Day surgery (SDC) | payer MEDICAID ==
[~2025-03-27 06:50] MED LIST: Propofol 200 MG/20 ML SDV ONE
[2025-03-27] MEDS: Lactated Ringers 1,000 ML IV SCH (07:25)
[2025-03-27 09:47] VITALS: BP 125/75; PULSE 67
== END 2025-03-27 10:15 | disposition home or self-care (01) ==
LOC: DL.ENDO 06:50
PROVIDERS: ATTEND Internal Medicine Gastroenterology
DX: K21.00 Gastro-esophageal reflux disease with esophagitis, without bleeding (principal); K44.9 Diaphragmatic hernia without obstruction or gangrene
CPT/HCPCS: 00731; 87205; J7120